=== PATIENT | male | born 1930 | race Caucasian/White ===

== ENCOUNTER 2016-08-30 23:03 | Inpatient (IN) | payer MEDICARE ==
[~2016-08-30] VITALS: Ht 180.3 cm; Wt 58.2 kg
--- NOTE | 2016-08-30 23:15 | PHYS DOC ---
Adult General Chief Complaint Chief Complaint: syncope HPI HPI Patient is a 86 year old male who presents with. He states he felt a little weak today and then I placed in a kitchen a syncopal episode. This was witnessed by his girlfriend who found him on the floor. He is currently awake alert and oriented 3 and has no complaints. He states he's been eating more red meat lately his been having more stomach upset is been using Pepto-Bismol. He states his stools get black whenever uses Pepto. He denies any chest pain nausea vomiting. He states he does take an aspirin a day and takes Ativan as needed for anxiety. Review of Systems Review of Systems Constitutional: Denies fever or chills [] Eyes: Denies change in visual acuity, redness, or eye pain [] HENT: Denies nasal congestion or sore throat [] Respiratory: Denies cough or shortness of breath [] Cardiovascular: No additional information not addressed in HPI [] GI: Denies abdominal pain, nausea, vomiting, bloody stools or diarrhea [] : Denies dysuria or hematuria [] Musculoskeletal: Denies back pain or joint pain [] Integument: Denies rash or skin lesions [] Neurologic: Denies headache, focal weakness or sensory changes [] Endocrine: Denies polyuria or polydipsia [] Current Medications Current Medications Allergies Allergies Allergies Coded Allergies Type Severity Reaction Last Updated Verified No Known Drug Allergies 08/30/16 No Physical Exam Physical Exam Constitutional: Well developed, well nourished, no acute distress, non-toxic appearance. [] HENT: Normocephalic, atraumatic, bilateral external ears normal, oropharynx moist, no oral exudates, nose normal. [] Eyes: PERRLA, EOMI, conjunctiva normal, no discharge. [] Neck: Normal range of motion, no tenderness, supple, no stridor. [] Cardiovascular:Heart rate regular rhythm, no murmur [] Lungs & Thorax: Bilateral breath sounds clear to auscultation [] Abdomen: Bowel sounds normal, soft, no tenderness, no masses, no pulsatile masses. [] Skin: Warm, dry, no erythema, no rash. [] Back: No tenderness, no CVA tenderness. [] Extremities: No tenderness, no cyanosis, no clubbing, ROM intact, no edema. [] Neurologic: Alert and oriented X 3, normal motor function, normal sensory function, no focal deficits noted. [] Psychologic: Affect normal, judgement normal, mood normal. [] Current Patient Data Vital Signs Vital Signs Date Time Temp Pulse Resp B/P (MAP) Pulse Ox O2 Delivery O2 Flow Rate FiO2 08/30/16 23:30 88 20 106/52 (70) 99 Room Air 08/30/16 23:03 97.8 97.8 Lab Values Laboratory Tests Test 08/30/16 23:15 White Blood Count 9.3 x10^3/uL (4.0-11.0) Red Blood Count 2.37 x10^6/uL (4.30-5.70) L Hemoglobin 8.1 g/dL (13.0-17.5) L Hematocrit 23.5 % (39.0-53.0) L Mean Corpuscular Volume 99 fL (79-100) Mean Corpuscular Hemoglobin 34 pg (25-35) Mean Corpuscular Hemoglobin Concent 35 g/dL (31-37) Red Cell Distribution Width 13.4 % (11.5-14.5) Platelet Count 154 x10^3/uL (140-400) Neutrophils (%) (Auto) 67 % (31-73) Lymphocytes (%) (Auto) 22 % (24-48) L Monocytes (%) (Auto) 7 % (0-9) Eosinophils (%) (Auto) 3 % (0-3) Basophils (%) (Auto) 1 % (0-3) Neutrophils # (Auto) 6.3 x10^3uL (1.8-7.7) Lymphocytes # (Auto) 2.1 x10^3/uL (1.0-4.8) Monocytes # (Auto) 0.6 x10^3/uL (0.0-1.1) Eosinophils # (Auto) 0.2 x10^3/uL (0.0-0.7) Basophils # (Auto) 0.1 x10^3/uL (0.0-0.2) Prothrombin Time 17.0 SEC (11.7-14.0) H Prothrombin Time INR 1.5 (0.8-1.1) H Sodium Level 144 mmol/L (136-145) Potassium Level 4.5 mmol/L (3.5-5.1) Chloride Level 109 mmol/L (98-107) H Carbon Dioxide Level 26 mmol/L (21-32) Anion Gap 9 (6-14) Blood Urea Nitrogen 49 mg/dL (8-26) H Creatinine 1.0 mg/dL (0.7-1.3) Estimated GFR (Cockcroft-Gault) 71.2 Glucose Level 194 mg/dL (70-99) H Calcium Level 8.4 mg/dL (8.5-10.1) L Magnesium Level 1.8 mg/dL (1.8-2.4) Total Bilirubin 0.6 mg/dL (0.2-1.0) Direct Bilirubin 0.1 mg/dL (0.0-0.2) Aspartate Amino Transferase (AST) 29 U/L (15-37) Alanine Aminotransferase (ALT) 18 U/L (16-63) Alkaline Phosphatase 56 U/L (46-116) Creatine Kinase 110 U/L (39-308) Creatine Kinase MB (Mass) 1.1 ng/mL (0.0-3.6) Creatine Kinase MB Relative Index 1.0 % (0-4) Troponin I Quantitative 0.080 ng/mL (0.000-0.055) IF-Alv-P-Type Natriuretic Peptide 140 pg/mL (0-449) Total Protein 4.5 g/dL (6.4-8.2) L Albumin 2.4 g/dL (3.4-5.0) L Thyroid Stimulating Hormone (TSH) 4.149 uIU/mL (0.358-3.74) H Laboratory Tests 08/30/16 23:15 Laboratory Tests 08/30/16 23:15 EKG EKG EKG shows sinus rhythm with rate of [address] elevations or T-wave inversions, PVCs noted, normal axis, QTC 436 ms, as interpreted by me. Radiology/Procedures Radiology/Procedures One view chest x-ray did not show any focal consolidations, bony abnormality, pneumothorax, as interpreted by me. Impressions: Syncope Anemia Elevated troponin Course & Med Decision Making Course & Med Decision Making Pertinent Labs and Imaging studies reviewed. (See chart for details) She is being admitted for syncopal episode and likely an upper GI bleed. He has dark black stools on rectal exam and Hemoccult is pending at this time. His hemoglobin is 8. His blood pressure is on the softer side for usually runs. Is 107 systolic and he states he usually runs 120s to 30s. He started her protonic drip per pharmacy and one unit of blood is being given per hospital's recommendations. I have consult with GI. I will place a consult computer for cardiology since she has an elevated troponin of 0.08. He does not have any chest pain at this time. Patient's in stable condition be admitted to the floor. He did speak with Dr. Temple with GI to inform her of the patient's vitals, current situation, labs and admission to the [facility] to the hospitalist. Critical care time: 60 minutes of critical care time was used on this patient a sling procedures. Dragon Disclaimer Dragon Disclaimer This electronic medical record was generated, in whole or in part, using a voice recognition dictation system. Departure Departure Impression: Primary Impression: Syncope Disposition: ADMITTED INPATIENT Admitting Physician: Other Condition: STABLE ROSCOE FULLER MD Aug 30, 2016 23:15
[2016-08-30 23:24] LABS: BASO # 0.1 x10^3/uL (0.0-0.2); BASO % 1 % (0-3); EOS % 3 % (0-3); HEMATOCRIT 23.5 % (39.0-53.0); HEMOGLOBIN 8.1 g/dL (13.0-17.5); LYMPH # 2.1 x10^3/uL (1.0-4.8); LYMPH % 22 % (24-48); MEAN CORPUSCULAR HEMOGLOBIN 34 pg (25-35); MEAN CORPUSCULAR HGB CONC 35 g/dL (31-37); MEAN CORPUSCULAR VOLUME 99 fL (79-100); MONO % 7 % (0-9); NEUT % 67 % (31-73); PLATELET COUNT 154 x10^3/uL (140-400); RED BLOOD COUNT 2.37 x10^6/uL (4.30-5.70); RED CELL DISTRIBUTION WIDTH 13.4 % (11.5-14.5); WHITE BLOOD COUNT 9.3 x10^3/uL (4.0-11.0)
[2016-08-30 23:33] LABS: INR 1.5 (0.8-1.1)
[2016-08-30 23:36] LABS: CALCIUM 8.4 mg/dL (8.5-10.1); GFR 71.2; POTASSIUM 4.5 mmol/L (3.5-5.1)
[2016-08-30 23:43] LABS: ALBUMIN 2.4 g/dL (3.4-5.0); DIRECT BILIRUBIN 0.1 mg/dL (0.0-0.2); MAGNESIUM 1.8 mg/dL (1.8-2.4); TOTAL BILIRUBIN 0.6 mg/dL (0.2-1.0); TOTAL PROTEIN 4.5 g/dL (6.4-8.2)
[2016-08-31] VITALS (21 sets, daily range): BP systolic 97–145; BP diastolic 48–66
[2016-08-31] MEDS ORDERED: IV NORMAL SALINE 1000ML BAG 1,000 ML IV ONE (00:30)
[2016-08-31 00:33] LABS: CKMB MASS 1.1 ng/mL (0.0-3.6)
[2016-08-31 01:10] LABS: NEG OBC FOB NEG; POS OBC FOB POS
[2016-08-31] MEDS ORDERED: ONDANSETRON PF 4 MG/2 ML VIAL. IV PRN (01:30)
[2016-08-31] MEDS: PANTOPRAZOLE SODIUM IV 80 MG in IV NORMAL SALINE 100ML 100 ML IV SCH ×3 (01:43→21:14)
--- NOTE | 2016-08-31 01:57 | ACF ---
Admission Forms Criteria GASTROINTESTINAL BLEEDING Clinical Indications for Inpatient Care (Place 'X' for any and all applicable criteria): Ongoing inpatient care may be indicated for gastrointestinal bleeding with ANY ONE of the following (4)(20)(21)(22)(23)(24): [ ]I. Active bleeding (eg, fresh voluminous blood in emesis or nasogastric aspirate, or per rectum) [ ]II. Hemodynamic instability [ ]III. Anticoagulation therapy or coagulopathy ((eg, advanced liver disease, irreversible anticoagulation) [ ]IV. Ischemic colitis (22) [ ]V. Endoscopy showing arterial bleeding, adherent clot, nonbleeding visible vessel, varices, flat red spots, ulcer size greater than 2 cm, or portal hypertensive gastropathy [ ]. High-risk low platelet count [X]VII. Anemia requiring inpatient care as indicated by ANY ONE of the following a)[ ] Cognitive impairment b)[X] Syncope c)[ ] Heart failure d)[ ] Chest pain e)[ ] Dyspnea f)[ ] Other findings suggesting inadequate perfusion (eg, peripheral or myocardial ischemia, end organ dysfunction) [ ]VIII. High-risk low platelet count [ ]IX. Suspected variceal cause of bleeding as indicated by ANY ONE of the following(27)(28): a)[ ] Known varices b)[ ] Hepatomegaly or splenomegaly c)[ ] Ascites d)[ ] Jaundice or scleral icterus e)[ ] History of liver disease (eg, cirrhosis) f)[ ] Physical findings of portal hypertension (eg, caput medusa) g)[ ] Comorbid disorder indicating risk for portal vein thrombosis (eg , abdominal surgery, sepsis, shock, exchange transfusion, prior umbilical vein catheterization) Extended stay may be needed until ALL of the following are present(20)(38)(47): [ ]a) Hemodynamic stability [ ]b) No evidence of active bleeding (eg, stable Hematocrit) [ ]c) Platelet count, prothrombin time, and partial thromboplastin time acceptable for next level of care [ ]d) Surgical or other acute intervention not needed [ ]e) Oral hydration and diet tolerated The original [facility] content created by Stella Dennison has been revised. The portions of the content which have been revised are identified through the use of italic text or in bold, and Stella Dennison has neither reviewed nor approved the modified material. All other unmodified content is copyright [facility]. Please see references footnoted in the original [facility] edition 2016 Admission Criteria Met?: Yes DERIK HASSAN Aug 31, 2016 01:57
[2016-08-31] MEDS ORDERED: MELA3TAB2 PO (06:26)
[2016-08-31] MEDS ORDERED: ASPI-482 PO (06:26)
[2016-08-31] MEDS ORDERED: CLON0.5T PO (06:26)
--- NOTE | 2016-08-31 08:11 | RAD ---
Portable chest, 08/30/2016: History: Syncope The heart size is normal. There is calcific plaquing of the aorta. The pulmonary vascularity is normal. No pulmonary infiltrates are seen. There is no evidence of pleural fluid. IMPRESSION: No acute cardiopulmonary abnormality is detected.
--- NOTE | 2016-08-31 08:20 | EKG ---
[facility] [address] [place] [address] Test Date: 2016-08-30 Test Time: 23:09:52 Pat Name: ALBERT OCHOA Department: Room: 258 1 Gender: M Enamel Dipper: : 1930 Requested By: ROSCOE FULLER Order Number: [id number] Reading MD: Tushar Doran Measurements Intervals [place] Rate: 93 P: 51 NH: 132 QRS: 31 QRSD: 76 T: 29 QT: 370 QTc: 463 Interpretive Statements SINUS RHYTHM VENTRICULAR PREMATURE COMPLEX(ES) LOW LIMB LEAD VOLTAGE QRS(T) CONTOUR ABNORMALITY CANNOT RULE OUT ANTEROLATERAL MYOCARDIAL DAMAGE RI6.01 Unconfirmed report No previous ECG available for comparison Electronically Signed On 08-31-2016 15:54:59 CDT by Tushar Doran
[2016-08-31 09:58] LABS: HEMATOCRIT 20.4 % (39.0-53.0)
--- NOTE | 2016-08-31 10:46 | PDOC2 ---
CONSULT - DR. ARMANDO CHIEF COMPLAINT Chief Complaint anemia, heme positive stool Problems: HPI HPI Patient is a 86 year old male who presents with. He states he felt a little weak today and then I placed in a kitchen a syncopal episode. This was witnessed by his girlfriend who found him on the floor. He is currently awake alert and oriented 3 and has no complaints. He states he's been eating more red meat lately his been having more stomach upset is been using Pepto-Bismol. He states his stools get black whenever uses Pepto. He denies any chest pain nausea vomiting. He states he does take an aspirin a day and takes Ativan as needed for anxiety. He was found to have a hgb of 8.1 on admit and is not 7. He takes ASA 81 mg. His last colonoscopy was at age 77 by [facility]. No prior EGD. Trop initially elevated now normal. He started takiing Doxicycline from last Thursday to for a tic bite PMH PMH PMH Tic bite with recent doxicycline INsomnia for which he takes melatonin FMH no CRC Meds Melatonin Asa Doxicycline ROS ROS GEN: Denies fever or weight loss HEENT: No blurred vision or sore throat CV: Denies chest pain RESP: No shortness of breath or cough GI: As per HPI : No dysuria or hematuria M/S: No myalgias NEURO: No headache PSYCH: No depression Ricky Vital Signs Date Time Temp Pulse Resp B/P (MAP) Pulse Ox O2 Delivery O2 Flow Rate FiO2 08/31/16 10:10 98.9 98.9 08/31/16 08:00 Room Air 08/31/16 07:00 79 16 101/48 (65) 99 Physical Exam GEN: NAD HEENT: OP clear CV: S1S2 with murmur RESP: CTAB without wheezing, rhonchi, or crackles ABD: NABS, SNT/ND EXT: No edema NEURO: AAO x 3 LABS Labs Laboratory Tests Test 08/30/16 23:15 08/31/16 00:25 08/31/16 07:30 08/31/16 09:46 White Blood Count 9.3 x10^3/uL (4.0-11.0) Red Blood Count 2.37 x10^6/uL (4.30-5.70) Hemoglobin 8.1 g/dL (13.0-17.5) 7.0 g/dL (13.0-17.5) Hematocrit 23.5 % (39.0-53.0) 20.4 % (39.0-53.0) Mean Corpuscular Volume 99 fL (79-100) Mean Corpuscular Hemoglobin 34 pg (25-35) Mean Corpuscular Hemoglobin Concent 35 g/dL (31-37) 34 g/dL (31-37) Red Cell Distribution Width 13.4 % (11.5-14.5) Platelet Count 154 x10^3/uL (140-400) Neutrophils (%) (Auto) 67 % (31-73) Lymphocytes (%) (Auto) 22 % (24-48) Monocytes (%) (Auto) 7 % (0-9) Eosinophils (%) (Auto) 3 % (0-3) Basophils (%) (Auto) 1 % (0-3) Neutrophils # (Auto) 6.3 x10^3uL (1.8-7.7) Lymphocytes # (Auto) 2.1 x10^3/uL (1.0-4.8) Monocytes # (Auto) 0.6 x10^3/uL (0.0-1.1) Eosinophils # (Auto) 0.2 x10^3/uL (0.0-0.7) Basophils # (Auto) 0.1 x10^3/uL (0.0-0.2) Prothrombin Time 17.0 SEC (11.7-14.0) Prothromb Time International Ratio 1.5 (0.8-1.1) Sodium Level 144 mmol/L (136-145) Potassium Level 4.5 mmol/L (3.5-5.1) Chloride Level 109 mmol/L (98-107) Carbon Dioxide Level 26 mmol/L (21-32) Anion Gap 9 (6-14) Blood Urea Nitrogen 49 mg/dL (8-26) Creatinine 1.0 mg/dL (0.7-1.3) Estimated GFR (Cockcroft-Gault) 71.2 Glucose Level 194 mg/dL (70-99) Calcium Level 8.4 mg/dL (8.5-10.1) Magnesium Level 1.8 mg/dL (1.8-2.4) Total Bilirubin 0.6 mg/dL (0.2-1.0) Direct Bilirubin 0.1 mg/dL (0.0-0.2) Aspartate Amino Transf (AST/SGOT) 29 U/L (15-37) Alanine Aminotransferase (ALT/SGPT) 18 U/L (16-63) Alkaline Phosphatase 56 U/L (46-116) Creatine Kinase 110 U/L (39-308) Creatine Kinase MB (Mass) 1.1 ng/mL (0.0-3.6) Creatine Kinase MB Relative Index 1.0 % (0-4) Troponin I Quantitative 0.080 ng/mL (0.000-0.055) 0.036 ng/mL (0.000-0.055) CV-Hlc-W-Type Natriuretic Peptide 140 pg/mL (0-449) Total Protein 4.5 g/dL (6.4-8.2) Albumin 2.4 g/dL (3.4-5.0) Thyroid Stimulating Hormone (TSH) 4.149 uIU/mL (0.358-3.74) Stool Occult Blood Positive (NEG) IMAGING Imaging CXR ASSESSMENT & PLAN Assessment & Plan Anemia blood loss: Receiving prbcs. Cont PPI. Favor EGD if okay with cardiology RUFINO ARMANDO MD Aug 31, 2016 10:46
[2016-08-31] MEDS ORDERED: 0.9 % SODIUM CHLORIDE 10 ML DISP.SYRIN. IV PRN (11:00)
--- NOTE | 2016-08-31 11:02 | PDOC1 ---
History and Physical Date of Admission Date of Admission DATE: 08/31/16 TIME: 10:42 Identification/Chief Complaint Chief Complaint Syncope Melena Problems: Source Source: Patient History of Present Illness History of Present Illness Mr Cervantes is an 86 y/o man who presented to the ER after a syncopal episode at home. He relates that he was about to take his bedtime medications when he suddenly collapsed in his kitchen. His girlfriend heard a thump and found him, callled [phone]. He came to when he arrived in the ER. has fairly good recollection of events from then on. Denies any SOB or CP or palpitation, denies any history of heart disease. On further questioning, he admits to melena for the past week, as well as stomach upset, for which he took multiple doses of Tums daily for the past week. He attributed the symptoms to an antibiotic he was prescribed for a tick bite and resultant cellulitis last Thursday. Past Medical History Cardiovascular: No pertinent hx Pulmonary: No pertinent hx GI: No pertinent hx Heme/Onc: Other (easy bruising) Musculoskeletal: Osteoarthritis Family History Family History longevity on both sides Family History: Chronic Bronchitis Social History Smoke: No ALCOHOL: occassional Drugs: None Current Problem List Problem List Problems Medical Problems: (1) Syncope Status: Acute Problems: Current Medications Current Medications Current Medications Sodium Chloride 1,000 ml @ 1,000 mls/hr 1X ONCE IV Last administered on 00:19; Start 08/31/16 at 00:30; Stop 08/31/16 at 01:29; Status DC Pantoprazole Sodium 80 mg/ Sodium Chloride 100 ml @ 10 mls/hr Q10H IV Last administered on 08/31/16 10:20; Start 08/31/16 at 00:45 Ondansetron HCl (Zofran) 4 mg PRN Q8HRS PRN IV NAUSEA/VOMITING; Start 08/31/16 at 01:30; Stop 09/01/16 at 01:29 Active Scripts Active Reported Aspir 81 (Aspirin) 81 Mg Tablet.dr 1 Tab PO DAILY Melatonin 3 Mg Tablet 1 Tab PO QHS Klonopin (Clonazepam) 0.5 Mg Tablet 1 Tab PO QHS Allergies Allergies: Coded Allergies: No Known Drug Allergies (Unverified , 08/30/16) ROS Review of System positive as per HPI. recent infected tick bite - resolved. no c/o in rest of organ system review Physical Exam General: Alert, Oriented X3, Cooperative, No acute distress HEENT: Atraumatic, EOMI, Mucous membr. moist/pink Heart: RRR Abdomen: Normal bowel sounds, Soft, No tenderness, No hepatosplenomegaly Extremities: No clubbing, No cyanosis, No edema Skin: No rashes Neuro: Normal speech Psych/Mental Status: Mental status NL Vitals Vitals Vital Signs Date Time Temp Pulse Resp B/P (MAP) Pulse Ox O2 Delivery O2 Flow Rate FiO2 08/31/16 10:10 98.9 98.9 08/31/16 08:00 Room Air 08/31/16 07:00 79 16 101/48 (65) 99 Labs Labs Laboratory Tests Test 08/30/16 23:15 08/31/16 00:25 08/31/16 07:30 08/31/16 09:46 White Blood Count 9.3 x10^3/uL (4.0-11.0) Red Blood Count 2.37 x10^6/uL (4.30-5.70) Hemoglobin 8.1 g/dL (13.0-17.5) 7.0 g/dL (13.0-17.5) Hematocrit 23.5 % (39.0-53.0) 20.4 % (39.0-53.0) Mean Corpuscular Volume 99 fL (79-100) Mean Corpuscular Hemoglobin 34 pg (25-35) Mean Corpuscular Hemoglobin Concent 35 g/dL (31-37) 34 g/dL (31-37) Red Cell Distribution Width 13.4 % (11.5-14.5) Platelet Count 154 x10^3/uL (140-400) Neutrophils (%) (Auto) 67 % (31-73) Lymphocytes (%) (Auto) 22 % (24-48) Monocytes (%) (Auto) 7 % (0-9) Eosinophils (%) (Auto) 3 % (0-3) Basophils (%) (Auto) 1 % (0-3) Neutrophils # (Auto) 6.3 x10^3uL (1.8-7.7) Lymphocytes # (Auto) 2.1 x10^3/uL (1.0-4.8) Monocytes # (Auto) 0.6 x10^3/uL (0.0-1.1) Eosinophils # (Auto) 0.2 x10^3/uL (0.0-0.7) Basophils # (Auto) 0.1 x10^3/uL (0.0-0.2) Prothrombin Time 17.0 SEC (11.7-14.0) Prothromb Time International Ratio 1.5 (0.8-1.1) Sodium Level 144 mmol/L (136-145) Potassium Level 4.5 mmol/L (3.5-5.1) Chloride Level 109 mmol/L (98-107) Carbon Dioxide Level 26 mmol/L (21-32) Anion Gap 9 (6-14) Blood Urea Nitrogen 49 mg/dL (8-26) Creatinine 1.0 mg/dL (0.7-1.3) Estimated GFR (Cockcroft-Gault) 71.2 Glucose Level 194 mg/dL (70-99) Calcium Level 8.4 mg/dL (8.5-10.1) Magnesium Level 1.8 mg/dL (1.8-2.4) Total Bilirubin 0.6 mg/dL (0.2-1.0) Direct Bilirubin 0.1 mg/dL (0.0-0.2) Aspartate Amino Transf (AST/SGOT) 29 U/L (15-37) Alanine Aminotransferase (ALT/SGPT) 18 U/L (16-63) Alkaline Phosphatase 56 U/L (46-116) Creatine Kinase 110 U/L (39-308) Creatine Kinase MB (Mass) 1.1 ng/mL (0.0-3.6) Creatine Kinase MB Relative Index 1.0 % (0-4) Troponin I Quantitative 0.080 ng/mL (0.000-0.055) 0.036 ng/mL (0.000-0.055) YI-Uqy-G-Type Natriuretic Peptide 140 pg/mL (0-449) Total Protein 4.5 g/dL (6.4-8.2) Albumin 2.4 g/dL (3.4-5.0) Thyroid Stimulating Hormone (TSH) 4.149 uIU/mL (0.358-3.74) Stool Occult Blood Positive (NEG) Laboratory Tests Test 08/30/16 23:15 7/17 00:25 08/31/16 07:30 08/31/16 09:46 White Blood Count 9.3 x10^3/uL (4.0-11.0) Red Blood Count 2.37 x10^6/uL (4.30-5.70) Hemoglobin 8.1 g/dL (13.0-17.5) 7.0 g/dL (13.0-17.5) Hematocrit 23.5 % (39.0-53.0) 20.4 % (39.0-53.0) Mean Corpuscular Volume 99 fL (79-100) Mean Corpuscular Hemoglobin 34 pg (25-35) Mean Corpuscular Hemoglobin Concent 35 g/dL (31-37) 34 g/dL (31-37) Red Cell Distribution Width 13.4 % (11.5-14.5) Platelet Count 154 x10^3/uL (140-400) Neutrophils (%) (Auto) 67 % (31-73) Lymphocytes (%) (Auto) 22 % (24-48) Monocytes (%) (Auto) 7 % (0-9) Eosinophils (%) (Auto) 3 % (0-3) Basophils (%) (Auto) 1 % (0-3) Neutrophils # (Auto) 6.3 x10^3uL (1.8-7.7) Lymphocytes # (Auto) 2.1 x10^3/uL (1.0-4.8) Monocytes # (Auto) 0.6 x10^3/uL (0.0-1.1) Eosinophils # (Auto) 0.2 x10^3/uL (0.0-0.7) Basophils # (Auto) 0.1 x10^3/uL (0.0-0.2) Prothrombin Time 17.0 SEC (11.7-14.0) Prothromb Time International Ratio 1.5 (0.8-1.1) Sodium Level 144 mmol/L (136-145) Potassium Level 4.5 mmol/L (3.5-5.1) Chloride Level 109 mmol/L (98-107) Carbon Dioxide Level 26 mmol/L (21-32) Anion Gap 9 (6-14) Blood Urea Nitrogen 49 mg/dL (8-26) Creatinine 1.0 mg/dL (0.7-1.3) Estimated GFR (Cockcroft-Gault) 71.2 Glucose Level 194 mg/dL (70-99) Calcium Level 8.4 mg/dL (8.5-10.1) Magnesium Level 1.8 mg/dL (1.8-2.4) Total Bilirubin 0.6 mg/dL (0.2-1.0) Direct Bilirubin 0.1 mg/dL (0.0-0.2) Aspartate Amino Transf (AST/SGOT) 29 U/L (15-37) Alanine Aminotransferase (ALT/SGPT) 18 U/L (16-63) Alkaline Phosphatase 56 U/L (46-116) Creatine Kinase 110 U/L (39-308) Creatine Kinase MB (Mass) 1.1 ng/mL (0.0-3.6) Creatine Kinase MB Relative Index 1.0 % (0-4) Troponin I Quantitative 0.080 ng/mL (0.000-0.055) 0.036 ng/mL (0.000-0.055) DQ-Rjf-E-Type Natriuretic Peptide 140 pg/mL (0-449) Total Protein 4.5 g/dL (6.4-8.2) Albumin 2.4 g/dL (3.4-5.0) Thyroid Stimulating Hormone (TSH) 4.149 uIU/mL (0.358-3.74) Stool Occult Blood Positive (NEG) VTE Prophylaxis Ordered VTE Prophylaxis Devices: Yes VTE Pharmacological Prophylaxi: Contraindicated Assessment/Plan Assessment/Plan Mr Cervantes is an 86 y/o man w/o any significant PMH, who presented to the ER after a syncopal event and ongoing melena and symptoms of gastritis. He has been transfused with 1 PRBC last night and has been rehydrated. H/H continues to drop. transfuse PRBC now, monitor H/H closely. GI consult requested for EGD. Will hold his baby aspirin and melatonin for now; switch to IV PRN ativan for longstanding benzo use (since before of his 1 yr ago). States his PCP is weaning him off the med slowly. The suspicion is that his syncope may be related to fairly rapidly developing anemia of acute bleed. However, heart disease cannot be ruled out, norma with mild troponin leak - prob demand ischemia. cardiology consult requested. Condition: ALPHONSO Self MD Aug 31, 2016 11:02
[2016-08-31 11:04] LABS: BILIRUBIN,URINE NEGATIVE (NEG); GLUCOSE,URINE NEGATIVE (NEG); NITRITE,URINE NEGATIVE (NEG); PROTEIN,URINE NEGATIVE (NEG-TRACE); UROBILINOGEN,URINE 0.2 mg/dL (0.2 mg/dL)
[2016-08-31 11:10] LABS: SQUAMOUS EPITHELIAL CELL,UR FEW /LPF
[2016-08-31 11:11] LABS: BACTERIA,URINE FEW /HPF (0-FEW); RBC,URINE OCC /HPF (0-2); WBC,URINE OCC /HPF (0-4)
[2016-08-31] MEDS ORDERED: IV RINGERS,LACTATED 1000ML 1,000 ML IV SCH (13:12)
[2016-08-31] MEDS ORDERED: PROPOFOL 20 ML IV ONE (13:38)
[2016-08-31] MEDS ORDERED: EPINEPHrine 1 MG/ML VIAL SQ ONE ×2 (13:52)
[2016-08-31] MEDS ORDERED: EPINEPHrine SYRINGE 1 MG/10 ML SYRINGE ONE (14:11)
--- NOTE | 2016-08-31 14:43 | PDOC2 ---
CONSULT Date of Consult Date of Consult DATE: 08/31/16 TIME: 14:35 Reason for Consult Reason for Consult: Syncope Referring Physician Referring Physician: Dr. Peña Identification/Chief Complaint Chief Complaint Syncope Problems: Source Source: Patient History of Present Illness Reason for Visit: The patient is a pleasant 86-year-old male with reported episode of syncope while standing yesterday. The patient has had no previous episodes of syncope. He denies any associated chest pain or shortness of breath. He does report an upset stomach last several weeks for which she's been treated with Tums. Initial labs showed a minimally elevated troponin 0.08, increased TSH of 4.149. Chest x-ray showed no acute changes. EKG showed a sinus rhythm with no acute ischemic changes but increased PVCs. Initial hemoglobin and hematocrit was 8.1 and 23.5. Recheck this morning showed 7.0 and 20.4. Patient is resting comfortably in bed. He reportedly has dark bloody stool on rectal examination. Past Medical History Cardiovascular: No pertinent hx Pulmonary: No pertinent hx GI: No pertinent hx Heme/Onc: Other (easy bruising) Musculoskeletal: Osteoarthritis Past Surgical History Past Surgical History: No pertinent history Family History Family History: Chronic Bronchitis, Hypertension Social History Quit ALCOHOL: occassional Drugs: None Current Problem List Problem List Problems Medical Problems: (1) Syncope Status: Acute Current Medications Current Medications Current Medications Sodium Chloride 1,000 ml @ 1,000 mls/hr 1X ONCE IV Last administered on 00:19; Start 08/31/16 at 00:30; Stop 08/31/16 at 01:29; Status DC Pantoprazole Sodium 80 mg/ Sodium Chloride 100 ml @ 10 mls/hr Q10H IV Last administered on 08/31/16 10:20; Start 08/31/16 at 00:45 Ondansetron HCl (Zofran) 4 mg PRN Q8HRS PRN IV NAUSEA/VOMITING; Start 08/31/16 at 01:30; Stop 09/01/16 at 01:29 Sodium Chloride (Normal Saline Flush) 3 ml QSHIFT PRN IV AFTER MEDS AND BLOOD DRAWS; Start 08/31/16 at 11:00 Ringer's Solution 1,000 ml @ 50 mls/hr Q20H IV ; Start 08/31/16 at 13:12; Stop 09/01/16 at 01:11 Propofol 20 ml @ As Directed STK-MED ONCE IV ; Start 08/31/16 at 13:38; Stop 08/31 at 13:39; Status DC Epinephrine HCl (Adrenalin) 1 mg STK-MED ONCE SQ Last administered on 08/31/16 13:52; Start 08/31/16 at 13:52; Stop 08/31/16 at 14:04; Status DC Epinephrine HCl (Adrenalin) 1 mg STK-MED ONCE SQ Last administered on 08/31/16 13:52; Start 08/31/16 at 13:52; Stop 08/31/16 at 14:04; Status DC Epinephrine HCl (EPINEPHrine SYRINGE) 1 mg STK-MED ONCE .ROUTE ; Start 08/31/16 at 14:11; Stop 08/31/16 at 14:12; Status DC Active Scripts Active Reported Aspir 81 (Aspirin) 81 Mg Tablet.dr 1 Tab PO DAILY Melatonin 3 Mg Tablet 1 Tab PO QHS Klonopin (Clonazepam) 0.5 Mg Tablet 1 Tab PO QHS Allergies Allergies: Coded Allergies: No Known Drug Allergies (Unverified , 08/31/16) ROS General: YES: Fatigue Cardiovascular: yes Other (syncope) Gastrointestinal: Yes Other (epigastric discomfort) Physical Exam General: No acute distress HEENT: Atraumatic Lungs: Clear to auscultation Heart: Regular rate Abdomen: Normal bowel sounds Vitals VITALS Vital Signs Date Time Temp Pulse Resp B/P (MAP) Pulse Ox O2 Delivery O2 Flow Rate FiO2 08/31/16 14:18 90 20 121/58 100 Room Air 08/31/16 14:02 99.7 99.7 Labs Labs Laboratory Tests Test 08/30/16 23:15 08/31/16 00:25 08/31/16 07:30 08/31/16 09:46 White Blood Count 9.3 x10^3/uL (4.0-11.0) Red Blood Count 2.37 x10^6/uL (4.30-5.70) Hemoglobin 8.1 g/dL (13.0-17.5) 7.0 g/dL (13.0-17.5) Hematocrit 23.5 % (39.0-53.0) 20.4 % (39.0-53.0) Mean Corpuscular Volume 99 fL (79-100) Mean Corpuscular Hemoglobin 34 pg (25-35) Mean Corpuscular Hemoglobin Concent 35 g/dL (31-37) 34 g/dL (31-37) Red Cell Distribution Width 13.4 % (11.5-14.5) Platelet Count 154 x10^3/uL (140-400) Neutrophils (%) (Auto) 67 % (31-73) Lymphocytes (%) (Auto) 22 % (24-48) Monocytes (%) (Auto) 7 % (0-9) Eosinophils (%) (Auto) 3 % (0-3) Basophils (%) (Auto) 1 % (0-3) Neutrophils # (Auto) 6.3 x10^3uL (1.8-7.7) Lymphocytes # (Auto) 2.1 x10^3/uL (1.0-4.8) Monocytes # (Auto) 0.6 x10^3/uL (0.0-1.1) Eosinophils # (Auto) 0.2 x10^3/uL (0.0-0.7) Basophils # (Auto) 0.1 x10^3/uL (0.0-0.2) Prothrombin Time 17.0 SEC (11.7-14.0) Prothromb Time International Ratio 1.5 (0.8-1.1) Sodium Level 144 mmol/L (136-145) Potassium Level 4.5 mmol/L (3.5-5.1) Chloride Level 109 mmol/L (98-107) Carbon Dioxide Level 26 mmol/L (21-32) Anion Gap 9 (6-14) Blood Urea Nitrogen 49 mg/dL (8-26) Creatinine 1.0 mg/dL (0.7-1.3) Estimated GFR (Cockcroft-Gault) 71.2 Glucose Level 194 mg/dL (70-99) Calcium Level 8.4 mg/dL (8.5-10.1) Magnesium Level 1.8 mg/dL (1.8-2.4) Total Bilirubin 0.6 mg/dL (0.2-1.0) Direct Bilirubin 0.1 mg/dL (0.0-0.2) Aspartate Amino Transf (AST/SGOT) 29 U/L (15-37) Alanine Aminotransferase (ALT/SGPT) 18 U/L (16-63) Alkaline Phosphatase 56 U/L (46-116) Creatine Kinase 110 U/L (39-308) Creatine Kinase MB (Mass) 1.1 ng/mL (0.0-3.6) Creatine Kinase MB Relative Index 1.0 % (0-4) Troponin I Quantitative 0.080 ng/mL (0.000-0.055) 0.036 ng/mL (0.000-0.055) [id number]-Type Natriuretic Peptide 140 pg/mL (0-449) Total Protein 4.5 g/dL (6.4-8.2) Albumin 2.4 g/dL (3.4-5.0) Thyroid Stimulating Hormone (TSH) 4.149 uIU/mL (0.358-3.74) Stool Occult Blood Positive (NEG) Test 08/31/16 10:00 Urine Collection Type Unknown Urine Color Yellow Urine Clarity Clear Urine pH 8.0 Urine Specific [place] 1.020 Urine Protein Negative mg/dL (NEG-TRACE) Urine Glucose (UA) Negative mg/dL (NEG) Urine Ketones (Stick) Trace mg/dL (NEG) Urine Blood Negative (NEG) Urine Nitrite Negative (NEG) Urine Bilirubin Negative (NEG) Urine Urobilinogen Dipstick 0.2 mg/dL (0.2 mg/dL) Urine Leukocyte Esterase Negative (NEG) Urine RBC Occ /HPF (0-2) Urine WBC Occ /HPF (0-4) Urine Squamous Epithelial Cells Few /LPF Urine Bacteria Few /HPF (0-FEW) Urine Mucus Slight /LPF Laboratory Tests Test 08/30/16 23:15 08/31/16 00:25 08/31/16 07:30 08/31/16 09:46 White Blood Count 9.3 x10^3/uL (4.0-11.0) Red Blood Count 2.37 x10^6/uL (4.30-5.70) Hemoglobin 8.1 g/dL (13.0-17.5) 7.0 g/dL (13.0-17.5) Hematocrit 23.5 % (39.0-53.0) 20.4 % (39.0-53.0) Mean Corpuscular Volume 99 fL (79-100) Mean Corpuscular Hemoglobin 34 pg (25-35) Mean Corpuscular Hemoglobin Concent 35 g/dL (31-37) 34 g/dL (31-37) Red Cell Distribution Width 13.4 % (11.5-14.5) Platelet Count 154 x10^3/uL (140-400) Neutrophils (%) (Auto) 67 % (31-73) Lymphocytes (%) (Auto) 22 % (24-48) Monocytes (%) (Auto) 7 % (0-9) Eosinophils (%) (Auto) 3 % (0-3) Basophils (%) (Auto) 1 % (0-3) Neutrophils # (Auto) 6.3 x10^3uL (1.8-7.7) Lymphocytes # (Auto) 2.1 x10^3/uL (1.0-4.8) Monocytes # (Auto) 0.6 x10^3/uL (0.0-1.1) Eosinophils # (Auto) 0.2 x10^3/uL (0.0-0.7) Basophils # (Auto) 0.1 x10^3/uL (0.0-0.2) Prothrombin Time 17.0 SEC (11.7-14.0) Prothromb Time International Ratio 1.5 (0.8-1.1) Sodium Level 144 mmol/L (136-145) Potassium Level 4.5 mmol/L (3.5-5.1) Chloride Level 109 mmol/L (98-107) Carbon Dioxide Level 26 mmol/L (21-32) Anion Gap 9 (6-14) Blood Urea Nitrogen 49 mg/dL (8-26) Creatinine 1.0 mg/dL (0.7-1.3) Estimated GFR (Cockcroft-Gault) 71.2 Glucose Level 194 mg/dL (70-99) Calcium Level 8.4 mg/dL (8.5-10.1) Magnesium Level 1.8 mg/dL (1.8-2.4) Total Bilirubin 0.6 mg/dL (0.2-1.0) Direct Bilirubin 0.1 mg/dL (0.0-0.2) Aspartate Amino Transf (AST/SGOT) 29 U/L (15-37) Alanine Aminotransferase (ALT/SGPT) 18 U/L (16-63) Alkaline Phosphatase 56 U/L (46-116) Creatine Kinase 110 U/L (39-308) Creatine Kinase MB (Mass) 1.1 ng/mL (0.0-3.6) Creatine Kinase MB Relative Index 1.0 % (0-4) Troponin I Quantitative 0.080 ng/mL (0.000-0.055) 0.036 ng/mL (0.000-0.055) FX-Ccw-V-Type Natriuretic Peptide 140 pg/mL (0-449) Total Protein 4.5 g/dL (6.4-8.2) Albumin 2.4 g/dL (3.4-5.0) Thyroid Stimulating Hormone (TSH) 4.149 uIU/mL (0.358-3.74) Stool Occult Blood Positive (NEG) Test 08/31/16 10:00 Urine Collection Type Unknown Urine Color Yellow Urine Clarity Clear Urine pH 8.0 Urine Specific [place] 1.020 Urine Protein Negative mg/dL (NEG-TRACE) Urine Glucose (UA) Negative mg/dL (NEG) Urine Ketones (Stick) Trace mg/dL (NEG) Urine Blood Negative (NEG) Urine Nitrite Negative (NEG) Urine Bilirubin Negative (NEG) Urine Urobilinogen Dipstick 0.2 mg/dL (0.2 mg/dL) Urine Leukocyte Esterase Negative (NEG) Urine RBC Occ /HPF (0-2) Urine WBC Occ /HPF (0-4) Urine Squamous Epithelial Cells Few /LPF Urine Bacteria Few /HPF (0-FEW) Urine Mucus Slight /LPF Images Images Chest x-ray shows no acute changes. Assessment/Plan Assessment/Plan 1. Syncope. Patient has had significant decrease in hemoglobin and hematocrit this point to 7.0 and 20.4. Believe this is the most likely etiology of the syncope. He does have increased numbers of PVCs on his monitor and will need to exclude underlying arrhythmias. At this time we will complete rule out myocardial infarction. Check an echocardiogram. Agree with EGD as per the GI service. 2. Minimally elevated troponin. Initial troponin was 0.08 with a repeat of 0.036. EKG EKG shows no ischemic changes. Will continue present medications. We' ll check an echocardiogram and consider future ischemic testing. 3. TSH level of 4.149. as per the primary service. Thank you for allowing us to participate in the care of your pleasant patient. SUN HELLER MD Aug 31, 2016 14:43
[2016-08-31 18:05] LABS: HEMOGLOBIN 9.2 g/dL (13.0-17.5); RED BLOOD COUNT 2.78 x10^6/uL (4.30-5.70); RED CELL DISTRIBUTION WIDTH 15.3 % (11.5-14.5); WHITE BLOOD COUNT 10.3 x10^3/uL (4.0-11.0)
[2016-09-01 01:27] LABS: HEMATOCRIT 26.8 % (39.0-53.0); HEMOGLOBIN 9.2 g/dL (13.0-17.5); RED BLOOD COUNT 2.79 x10^6/uL (4.30-5.70); RED CELL DISTRIBUTION WIDTH 15.1 % (11.5-14.5); WHITE BLOOD COUNT 9.8 x10^3/uL (4.0-11.0)
[2016-09-01 03:17] LABS: CALCIUM 8.2 mg/dL (8.5-10.1); CREATININE 0.8 mg/dL (0.7-1.3); GFR 92.1
[2016-09-01 03:35] VITALS: BP 118/52
[2016-09-01 06:31] LABS: HEMATOCRIT 26.8 % (39.0-53.0); HEMOGLOBIN 9.2 g/dL (13.0-17.5); RED BLOOD COUNT 2.8 x10^6/uL (4.30-5.70); RED CELL DISTRIBUTION WIDTH 15.4 % (11.5-14.5); WHITE BLOOD COUNT 8.7 x10^3/uL (4.0-11.0)
[2016-09-01 07:00] VITALS: BP 114/59
[2016-09-01] MEDS: PANTOPRAZOLE SODIUM IV 80 MG in IV NORMAL SALINE 100ML 100 ML IV SCH (09:25)
--- NOTE | 2016-09-01 09:46 | PDOC ---
PROGRESS NOTES Chief Complaint Chief Complaint 1. UGIB, bleeding angiectasia, first part of duodenum extending to diverticulum by EGD (08/31) s/p epi and bicap 2. Acute anemia of blood loss 3. Elevated TSH (mild at 4) 4. Non smoker, non drinker History of Present Illness History of Present Illness HUngry NO abd pain' VS ok, Hb 9.2 from 7 on admit NO further recurrence of bleeding that we could see At [facility] floor - echo just done PLAN: COnt gtts Await GI rounds if ok to start clears COnsider decreasing freq of HH BLeeding scan or possible rpt EGD if bleeding recurs - per GI note Await echo results Dw RN Noe Was on ASa 81 at home only Vitals Vitals Vital Signs Date Time Temp Pulse Resp B/P (MAP) Pulse Ox O2 Delivery O2 Flow Rate FiO2 09/01/16 08:00 Room Air 09/01/16 07:00 98.5 75 18 114/59 (77) 98 98.5 Physical Exam General: No acute distress Heart: Regular rate Abdomen: Normal bowel sounds Extremities: No clubbing, No cyanosis, No edema Skin: No rashes Labs LABS Laboratory Tests Test 08/31/16 09:46 08/31/16 10:00 08/31/16 17:55 09/01/16 00:50 Hemoglobin 7.0 g/dL (13.0-17.5) 9.2 g/dL (13.0-17.5) 9.2 g/dL (13.0-17.5) Hematocrit 20.4 % (39.0-53.0) 26.0 % (39.0-53.0) 26.8 % (39.0-53.0) Mean Corpuscular Hemoglobin Concent 34 g/dL (31-37) 35 g/dL (31-37) 34 g/dL (31-37) Urine Collection Type Unknown Urine Color Yellow Urine Clarity Clear Urine pH 8.0 Urine Specific [place] 1.020 Urine Protein Negative mg/dL (NEG-TRACE) Urine Glucose (UA) Negative mg/dL (NEG) Urine Ketones (Stick) Trace mg/dL (NEG) Urine Blood Negative (NEG) Urine Nitrite Negative (NEG) Urine Bilirubin Negative (NEG) Urine Urobilinogen Dipstick 0.2 mg/dL (0.2 mg/dL) Urine Leukocyte Esterase Negative (NEG) Urine RBC Occ /HPF (0-2) Urine WBC Occ /HPF (0-4) Urine Squamous Epithelial Cells Few /LPF Urine Bacteria Few /HPF (0-FEW) Urine Mucus Slight /LPF White Blood Count 10.3 x10^3/uL (4.0-11.0) 9.8 x10^3/uL (4.0-11.0) Red Blood Count 2.78 x10^6/uL (4.30-5.70) 2.79 x10^6/uL (4.30-5.70) Mean Corpuscular Volume 94 fL (79-100) 96 fL (79-100) Mean Corpuscular Hemoglobin 33 pg (25-35) 33 pg (25-35) Red Cell Distribution Width 15.3 % (11.5-14.5) 15.1 % (11.5-14.5) Platelet Count 115 x10^3/uL (140-400) 115 x10^3/uL (140-400) Sodium Level 144 mmol/L (136-145) Potassium Level 4.0 mmol/L (3.5-5.1) Chloride Level 112 mmol/L (98-107) Carbon Dioxide Level 26 mmol/L (21-32) Anion Gap 6 (6-14) Blood Urea Nitrogen 29 mg/dL (8-26) Creatinine 0.8 mg/dL (0.7-1.3) Estimated GFR (Cockcroft-Gault) 92.1 Glucose Level 98 mg/dL (70-99) Calcium Level 8.2 mg/dL (8.5-10.1) Test 09/01/16 05:55 White Blood Count 8.7 x10^3/uL (4.0-11.0) Red Blood Count 2.80 x10^6/uL (4.30-5.70) Hemoglobin 9.2 g/dL (13.0-17.5) Hematocrit 26.8 % (39.0-53.0) Mean Corpuscular Volume 96 fL (79-100) Mean Corpuscular Hemoglobin 33 pg (25-35) Mean Corpuscular Hemoglobin Concent 34 g/dL (31-37) Red Cell Distribution Width 15.4 % (11.5-14.5) Platelet Count 116 x10^3/uL (140-400) Review of Systems Review of Systems no CP, abd pain, diarrhea, soa Assessment and Plan Assessmemt and Plan Problems Medical Problems: (1) Syncope Status: Acute Problems: Comment Review of Relevant I have reviewed the following items yaritza (where applicable) has been applied. Labs Laboratory Tests Test 08/30/16 23:15 08/31/16 00:25 08/31/16 07:30 08/31/16 09:46 White Blood Count 9.3 x10^3/uL (4.0-11.0) Red Blood Count 2.37 x10^6/uL (4.30-5.70) Hemoglobin 8.1 g/dL (13.0-17.5) 7.0 g/dL (13.0-17.5) Hematocrit 23.5 % (39.0-53.0) 20.4 % (39.0-53.0) Mean Corpuscular Volume 99 fL (79-100) Mean Corpuscular Hemoglobin 34 pg (25-35) Mean Corpuscular Hemoglobin Concent 35 g/dL (31-37) 34 g/dL (31-37) Red Cell Distribution Width 13.4 % (11.5-14.5) Platelet Count 154 x10^3/uL (140-400) Neutrophils (%) (Auto) 67 % (31-73) Lymphocytes (%) (Auto) 22 % (24-48) Monocytes (%) (Auto) 7 % (0-9) Eosinophils (%) (Auto) 3 % (0-3) Basophils (%) (Auto) 1 % (0-3) Neutrophils # (Auto) 6.3 x10^3uL (1.8-7.7) Lymphocytes # (Auto) 2.1 x10^3/uL (1.0-4.8) Monocytes # (Auto) 0.6 x10^3/uL (0.0-1.1) Eosinophils # (Auto) 0.2 x10^3/uL (0.0-0.7) Basophils # (Auto) 0.1 x10^3/uL (0.0-0.2) Prothrombin Time 17.0 SEC (11.7-14.0) Prothromb Time International Ratio 1.5 (0.8-1.1) Sodium Level 144 mmol/L (136-145) Potassium Level 4.5 mmol/L (3.5-5.1) Chloride Level 109 mmol/L (98-107) Carbon Dioxide Level 26 mmol/L (21-32) Anion Gap 9 (6-14) Blood Urea Nitrogen 49 mg/dL (8-26) Creatinine 1.0 mg/dL (0.7-1.3) Estimated GFR (Cockcroft-Gault) 71.2 Glucose Level 194 mg/dL (70-99) Calcium Level 8.4 mg/dL (8.5-10.1) Magnesium Level 1.8 mg/dL (1.8-2.4) Total Bilirubin 0.6 mg/dL (0.2-1.0) Direct Bilirubin 0.1 mg/dL (0.0-0.2) Aspartate Amino Transf (AST/SGOT) 29 U/L (15-37) Alanine Aminotransferase (ALT/SGPT) 18 U/L (16-63) Alkaline Phosphatase 56 U/L (46-116) Creatine Kinase 110 U/L (39-308) Creatine Kinase MB (Mass) 1.1 ng/mL (0.0-3.6) Creatine Kinase MB Relative Index 1.0 % (0-4) Troponin I Quantitative 0.080 ng/mL (0.000-0.055) 0.036 ng/mL (0.000-0.055) NI-Zfm-[id number]-Type Natriuretic Peptide 140 pg/mL (0-449) Total Protein 4.5 g/dL (6.4-8.2) Albumin 2.4 g/dL (3.4-5.0) Thyroid Stimulating Hormone (TSH) 4.149 uIU/mL (0.358-3.74) Stool Occult Blood Positive (NEG) Test 08/31/16 10:00 08/31/16 17:55 09/01/16 00:50 09/01/16 05:55 Urine Collection Type Unknown Urine Color Yellow Urine Clarity Clear Urine pH 8.0 Urine Specific [place] 1.020 Urine Protein Negative mg/dL (NEG-TRACE) Urine Glucose (UA) Negative mg/dL (NEG) Urine Ketones (Stick) Trace mg/dL (NEG) Urine Blood Negative (NEG) Urine Nitrite Negative (NEG) Urine Bilirubin Negative (NEG) Urine Urobilinogen Dipstick 0.2 mg/dL (0.2 mg/dL) Urine Leukocyte Esterase Negative (NEG) Urine RBC Occ /HPF (0-2) Urine WBC Occ /HPF (0-4) Urine Squamous Epithelial Cells Few /LPF Urine Bacteria Few /HPF (0-FEW) Urine Mucus Slight /LPF White Blood Count 10.3 x10^3/uL (4.0-11.0) 9.8 x10^3/uL (4.0-11.0) 8.7 x10^3/uL (4.0-11.0) Red Blood Count 2.78 x10^6/uL (4.30-5.70) 2.79 x10^6/uL (4.30-5.70) 2.80 x10^6/uL (4.30-5.70) Hemoglobin 9.2 g/dL (13.0-17.5) 9.2 g/dL (13.0-17.5) 9.2 g/dL (13.0-17.5) Hematocrit 26.0 % (39.0-53.0) 26.8 % (39.0-53.0) 26.8 % (39.0-53.0) Mean Corpuscular Volume 94 fL (79-100) 96 fL (79-100) 96 fL (79-100) Mean Corpuscular Hemoglobin 33 pg (25-35) 33 pg (25-35) 33 pg (25-35) Mean Corpuscular Hemoglobin Concent 35 g/dL (31-37) 34 g/dL (31-37) 34 g/dL (31-37) Red Cell Distribution Width 15.3 % (11.5-14.5) 15.1 % (11.5-14.5) 15.4 % (11.5-14.5) Platelet Count 115 x10^3/uL (140-400) 115 x10^3/uL (140-400) 116 x10^3/uL (140-400) Sodium Level 144 mmol/L (136-145) Potassium Level 4.0 mmol/L (3.5-5.1) Chloride Level 112 mmol/L (98-107) Carbon Dioxide Level 26 mmol/L (21-32) Anion Gap 6 (6-14) Blood Urea Nitrogen 29 mg/dL (8-26) Creatinine 0.8 mg/dL (0.7-1.3) Estimated GFR (Cockcroft-Gault) 92.1 Glucose Level 98 mg/dL (70-99) Calcium Level 8.2 mg/dL (8.5-10.1) Laboratory Tests Test 08/31/16 09:46 08/31/16 10:00 08/31/16 17:55 09/01/16 00:50 Hemoglobin 7.0 g/dL (13.0-17.5) 9.2 g/dL (13.0-17.5) 9.2 g/dL (13.0-17.5) Hematocrit 20.4 % (39.0-53.0) 26.0 % (39.0-53.0) 26.8 % (39.0-53.0) Mean Corpuscular Hemoglobin Concent 34 g/dL (31-37) 35 g/dL (31-37) 34 g/dL (31-37) Urine Collection Type Unknown Urine Color Yellow Urine Clarity Clear Urine pH 8.0 Urine Specific [place] 1.020 Urine Protein Negative mg/dL (NEG-TRACE) Urine Glucose (UA) Negative mg/dL (NEG) Urine Ketones (Stick) Trace mg/dL (NEG) Urine Blood Negative (NEG) Urine Nitrite Negative (NEG) Urine Bilirubin Negative (NEG) Urine Urobilinogen Dipstick 0.2 mg/dL (0.2 mg/dL) Urine Leukocyte Esterase Negative (NEG) Urine RBC Occ /HPF (0-2) Urine WBC Occ /HPF (0-4) Urine Squamous Epithelial Cells Few /LPF Urine Bacteria Few /HPF (0-FEW) Urine Mucus Slight /LPF White Blood Count 10.3 x10^3/uL (4.0-11.0) 9.8 x10^3/uL (4.0-11.0) Red Blood Count 2.78 x10^6/uL (4.30-5.70) 2.79 x10^6/uL (4.30-5.70) Mean Corpuscular Volume 94 fL (79-100) 96 fL (79-100) Mean Corpuscular Hemoglobin 33 pg (25-35) 33 pg (25-35) Red Cell Distribution Width 15.3 % (11.5-14.5) 15.1 % (11.5-14.5) Platelet Count 115 x10^3/uL (140-400) 115 x10^3/uL (140-400) Sodium Level 144 mmol/L (136-145) Potassium Level 4.0 mmol/L (3.5-5.1) Chloride Level 112 mmol/L (98-107) Carbon Dioxide Level 26 mmol/L (21-32) Anion Gap 6 (6-14) Blood Urea Nitrogen 29 mg/dL (8-26) Creatinine 0.8 mg/dL (0.7-1.3) Estimated GFR (Cockcroft-Gault) 92.1 Glucose Level 98 mg/dL (70-99) Calcium Level 8.2 mg/dL (8.5-10.1) Test 09/01/16 05:55 White Blood Count 8.7 x10^3/uL (4.0-11.0) Red Blood Count 2.80 x10^6/uL (4.30-5.70) Hemoglobin 9.2 g/dL (13.0-17.5) Hematocrit 26.8 % (39.0-53.0) Mean Corpuscular Volume 96 fL (79-100) Mean Corpuscular Hemoglobin 33 pg (25-35) Mean Corpuscular Hemoglobin Concent 34 g/dL (31-37) Red Cell Distribution Width 15.4 % (11.5-14.5) Platelet Count 116 x10^3/uL (140-400) Medications Current Medications Sodium Chloride 1,000 ml @ 1,000 mls/hr 1X ONCE IV Last administered on 00:19; Start 08/31/16 at 00:30; Stop 08/31/16 at 01:29; Status DC Pantoprazole Sodium 80 mg/ Sodium Chloride 100 ml @ 10 mls/hr Q10H IV Last administered on 09/01/16 09:25; Start 08/31/16 at 00:45 Ondansetron HCl (Zofran) 4 mg PRN Q8HRS PRN IV NAUSEA/VOMITING; Start 08/31/16 at 01:30; Stop 09/01/16 at 01:29; Status DC Sodium Chloride (Normal Saline Flush) 3 ml QSHIFT PRN IV AFTER MEDS AND BLOOD DRAWS; Start 08/31/16 at 11:00 Ringer's Solution 1,000 ml @ 50 mls/hr Q20H IV ; Start 08/31/16 at 13:12; Stop 09/01/16 at 01:11; Status DC Propofol 20 ml @ As Directed STK-MED ONCE IV ; Start 08/31/16 at 13:38; Stop 08/31 at 13:39; Status DC Epinephrine HCl (Adrenalin) 1 mg STK-MED ONCE SQ Last administered on 08/31/16 13:52; Start 08/31/16 at 13:52; Stop 08/31/16 at 14:04; Status DC Epinephrine HCl (Adrenalin) 1 mg STK-MED ONCE SQ Last administered on 08/31/16 13:52; Start 08/31/16 at 13:52; Stop 08/31/16 at 14:04; Status DC Epinephrine HCl (EPINEPHrine SYRINGE) 1 mg STK-MED ONCE .ROUTE ; Start 08/31/16 at 14:11; Stop 08/31/16 at 14:12; Status DC Active Scripts Active Reported Aspir 81 (Aspirin) 81 Mg Tablet.dr 1 Tab PO DAILY Melatonin 3 Mg Tablet 1 Tab PO QHS Klonopin (Clonazepam) 0.5 Mg Tablet 1 Tab PO QHS Vitals/I & O Vital Sign - Last 24 Hours 08/31/16 08/31/16 08/31/16 08/31/16 10:10 10:45 11:00 11:00 Temp 98.9 98.9 98.4 98.4 98.9 98.9 98.4 98.4 Pulse 73 76 78 Resp 16 18 18 B/P (MAP) 107/52 108/58 (75) 108/58 Pulse Ox 100 O2 Delivery Room Air 08/31/16 08/31/16 08/31/16 08/31/16 11:15 11:30 12:00 12:30 Temp 98.4 98.6 98.6 98.4 98.4 98.6 98.6 98.4 Pulse 80 77 75 76 Resp 18 18 18 18 B/P (MAP) 114/57 109/57 97/53 116/58 08/31/16 08/31/16 08/31/16 08/31/16 13:09 13:11 13:24 13:30 Temp 98.6 98.6 99.6 98.6 98.6 99.6 Pulse 77 75 71 Resp 20 20 20 B/P (MAP) 107/57 122/59 Pulse Ox 100 O2 Delivery Room Air 08/31/16 08/31/16 08/31/16 08/31/16 13:43 14:02 14:18 14:20 Temp 98.2 99.7 98.1 98.2 99.7 98.1 Pulse 80 91 90 83 Resp 20 20 20 18 B/P (MAP) 106/53 120/59 121/58 120/59 Pulse Ox 100 100 O2 Delivery Room Air Room Air 08/31/16 08/31/16 08/31/16 08/31/16 14:30 14:31 14:45 15:00 Temp 98.1 98.9 98.1 98.9 Pulse 84 87 82 81 Resp 18 20 16 16 B/P (MAP) 120/59 118/56 110/55 110/55 (73) Pulse Ox 100 98 O2 Delivery Room Air Room Air 08/31/16 08/31/16 08/31/16 08/31/16 15:00 15:27 15:30 16:00 Temp 98.4 98.6 98.6 98.4 98.6 98.6 Pulse 80 80 74 Resp 16 16 18 B/P (MAP) 109/55 113/56 116/57 08/31/16 08/31/16 08/31/16 08/31/16 16:30 19:20 20:00 23:05 Temp 98.2 99.4 98.2 99.4 Pulse 74 75 79 Resp 18 18 18 B/P (MAP) 131/59 114/59 (77) 105/55 (72) Pulse Ox 99 97 O2 Delivery Room Air Room Air Room Air 09/01/16 09/01/16 09/01/16 03:35 07:00 08:00 Temp 98.7 98.5 98.7 98.5 Pulse 73 75 Resp 18 18 B/P (MAP) 118/52 (74) 114/59 (77) Pulse Ox 98 98 O2 Delivery Room Air Room Air Room Air Intake and Output 08/31/16 08/31/16 09/01/16 15:00 23:00 07:00 Intake Total 320 ml 0 ml Output Total 350 ml 700 ml Balance 320 ml -350 ml -700 ml CRISTINA RICE MD Sep 01, 2016 09:46
--- NOTE | 2016-09-01 10:29 | PDOC ---
G I PROGRESS NOTE Reason for Follow-up UGI bleed/duodenal avm Subjective No complaints. Has not had stool since yesterday. No pain, N or V. Objective EGD report reviewed. Physical Exam Lungs clear. RRR Abdomen soft, not tender nor distended. Review of Relevant I have reviewed the following items yaritza (where applicable) has been applied. Labs Laboratory Tests Test 08/30/16 23:15 08/31/16 00:25 08/31/16 07:30 08/31/16 09:46 White Blood Count 9.3 x10^3/uL (4.0-11.0) Red Blood Count 2.37 x10^6/uL (4.30-5.70) Hemoglobin 8.1 g/dL (13.0-17.5) 7.0 g/dL (13.0-17.5) Hematocrit 23.5 % (39.0-53.0) 20.4 % (39.0-53.0) Mean Corpuscular Volume 99 fL (79-100) Mean Corpuscular Hemoglobin 34 pg (25-35) Mean Corpuscular Hemoglobin Concent 35 g/dL (31-37) 34 g/dL (31-37) Red Cell Distribution Width 13.4 % (11.5-14.5) Platelet Count 154 x10^3/uL (140-400) Neutrophils (%) (Auto) 67 % (31-73) Lymphocytes (%) (Auto) 22 % (24-48) Monocytes (%) (Auto) 7 % (0-9) Eosinophils (%) (Auto) 3 % (0-3) Basophils (%) (Auto) 1 % (0-3) Neutrophils # (Auto) 6.3 x10^3uL (1.8-7.7) Lymphocytes # (Auto) 2.1 x10^3/uL (1.0-4.8) Monocytes # (Auto) 0.6 x10^3/uL (0.0-1.1) Eosinophils # (Auto) 0.2 x10^3/uL (0.0-0.7) Basophils # (Auto) 0.1 x10^3/uL (0.0-0.2) Prothrombin Time 17.0 SEC (11.7-14.0) Prothromb Time International Ratio 1.5 (0.8-1.1) Sodium Level 144 mmol/L (136-145) Potassium Level 4.5 mmol/L (3.5-5.1) Chloride Level 109 mmol/L (98-107) Carbon Dioxide Level 26 mmol/L (21-32) Anion Gap 9 (6-14) Blood Urea Nitrogen 49 mg/dL (8-26) Creatinine 1.0 mg/dL (0.7-1.3) Estimated GFR (Cockcroft-Gault) 71.2 Glucose Level 194 mg/dL (70-99) Calcium Level 8.4 mg/dL (8.5-10.1) Magnesium Level 1.8 mg/dL (1.8-2.4) Total Bilirubin 0.6 mg/dL (0.2-1.0) Direct Bilirubin 0.1 mg/dL (0.0-0.2) Aspartate Amino Transf (AST/SGOT) 29 U/L (15-37) Alanine Aminotransferase (ALT/SGPT) 18 U/L (16-63) Alkaline Phosphatase 56 U/L (46-116) Creatine Kinase 110 U/L (39-308) Creatine Kinase MB (Mass) 1.1 ng/mL (0.0-3.6) Creatine Kinase MB Relative Index 1.0 % (0-4) Troponin I Quantitative 0.080 ng/mL (0.000-0.055) 0.036 ng/mL (0.000-0.055) QX-Raj-G-Type Natriuretic Peptide 140 pg/mL (0-449) Total Protein 4.5 g/dL (6.4-8.2) Albumin 2.4 g/dL (3.4-5.0) Thyroid Stimulating Hormone (TSH) 4.149 uIU/mL (0.358-3.74) Stool Occult Blood Positive (NEG) Test 08/31/16 10:00 08/31/16 17:55 09/01/16 00:50 09/01/16 05:55 Urine Collection Type Unknown Urine Color Yellow Urine Clarity Clear Urine pH 8.0 Urine Specific [place] 1.020 Urine Protein Negative mg/dL (NEG-TRACE) Urine Glucose (UA) Negative mg/dL (NEG) Urine Ketones (Stick) Trace mg/dL (NEG) Urine Blood Negative (NEG) Urine Nitrite Negative (NEG) Urine Bilirubin Negative (NEG) Urine Urobilinogen Dipstick 0.2 mg/dL (0.2 mg/dL) Urine Leukocyte Esterase Negative (NEG) Urine RBC Occ /HPF (0-2) Urine WBC Occ /HPF (0-4) Urine Squamous Epithelial Cells Few /LPF Urine Bacteria Few /HPF (0-FEW) Urine Mucus Slight /LPF White Blood Count 10.3 x10^3/uL (4.0-11.0) 9.8 x10^3/uL (4.0-11.0) 8.7 x10^3/uL (4.0-11.0) Red Blood Count 2.78 x10^6/uL (4.30-5.70) 2.79 x10^6/uL (4.30-5.70) 2.80 x10^6/uL (4.30-5.70) Hemoglobin 9.2 g/dL (13.0-17.5) 9.2 g/dL (13.0-17.5) 9.2 g/dL (13.0-17.5) Hematocrit 26.0 % (39.0-53.0) 26.8 % (39.0-53.0) 26.8 % (39.0-53.0) Mean Corpuscular Volume 94 fL (79-100) 96 fL (79-100) 96 fL (79-100) Mean Corpuscular Hemoglobin 33 pg (25-35) 33 pg (25-35) 33 pg (25-35) Mean Corpuscular Hemoglobin Concent 35 g/dL (31-37) 34 g/dL (31-37) 34 g/dL (31-37) Red Cell Distribution Width 15.3 % (11.5-14.5) 15.1 % (11.5-14.5) 15.4 % (11.5-14.5) Platelet Count 115 x10^3/uL (140-400) 115 x10^3/uL (140-400) 116 x10^3/uL (140-400) Sodium Level 144 mmol/L (136-145) Potassium Level 4.0 mmol/L (3.5-5.1) Chloride Level 112 mmol/L (98-107) Carbon Dioxide Level 26 mmol/L (21-32) Anion Gap 6 (6-14) Blood Urea Nitrogen 29 mg/dL (8-26) Creatinine 0.8 mg/dL (0.7-1.3) Estimated GFR (Cockcroft-Gault) 92.1 Glucose Level 98 mg/dL (70-99) Calcium Level 8.2 mg/dL (8.5-10.1) Laboratory Tests Test 08/31/16 17:55 09/01/16 00:50 09/01/16 05:55 White Blood Count 10.3 x10^3/uL (4.0-11.0) 9.8 x10^3/uL (4.0-11.0) 8.7 x10^3/uL (4.0-11.0) Red Blood Count 2.78 x10^6/uL (4.30-5.70) 2.79 x10^6/uL (4.30-5.70) 2.80 x10^6/uL (4.30-5.70) Hemoglobin 9.2 g/dL (13.0-17.5) 9.2 g/dL (13.0-17.5) 9.2 g/dL (13.0-17.5) Hematocrit 26.0 % (39.0-53.0) 26.8 % (39.0-53.0) 26.8 % (39.0-53.0) Mean Corpuscular Volume 94 fL (79-100) 96 fL (79-100) 96 fL (79-100) Mean Corpuscular Hemoglobin 33 pg (25-35) 33 pg (25-35) 33 pg (25-35) Mean Corpuscular Hemoglobin Concent 35 g/dL (31-37) 34 g/dL (31-37) 34 g/dL (31-37) Red Cell Distribution Width 15.3 % (11.5-14.5) 15.1 % (11.5-14.5) 15.4 % (11.5-14.5) Platelet Count 115 x10^3/uL (140-400) 115 x10^3/uL (140-400) 116 x10^3/uL (140-400) Sodium Level 144 mmol/L (136-145) Potassium Level 4.0 mmol/L (3.5-5.1) Chloride Level 112 mmol/L (98-107) Carbon Dioxide Level 26 mmol/L (21-32) Anion Gap 6 (6-14) Blood Urea Nitrogen 29 mg/dL (8-26) Creatinine 0.8 mg/dL (0.7-1.3) Estimated GFR (Cockcroft-Gault) 92.1 Glucose Level 98 mg/dL (70-99) Calcium Level 8.2 mg/dL (8.5-10.1) Hemoglobin stable overnight. Medications Current Medications Sodium Chloride 1,000 ml @ 1,000 mls/hr 1X ONCE IV Last administered on 00:19; Start 08/31/16 at 00:30; Stop 08/31/16 at 01:29; Status DC Pantoprazole Sodium 80 mg/ Sodium Chloride 100 ml @ 10 mls/hr Q10H IV Last administered on 09/01/16 09:25; Start 08/31/16 at 00:45 Ondansetron HCl (Zofran) 4 mg PRN Q8HRS PRN IV NAUSEA/VOMITING; Start 08/31/16 at 01:30; Stop 09/01/16 at 01:29; Status DC Sodium Chloride (Normal Saline Flush) 3 ml QSHIFT PRN IV AFTER MEDS AND BLOOD DRAWS; Start 08/31/16 at 11:00 Ringer's Solution 1,000 ml @ 50 mls/hr Q20H IV ; Start 08/31/16 at 13:12; Stop 09/01/16 at 01:11; Status DC Propofol 20 ml @ As Directed STK-MED ONCE IV ; Start 08/31/16 at 13:38; Stop 08/31 at 13:39; Status DC Epinephrine HCl (Adrenalin) 1 mg STK-MED ONCE SQ Last administered on 08/31/16 13:52; Start 08/31/16 at 13:52; Stop 08/31/16 at 14:04; Status DC Epinephrine HCl (Adrenalin) 1 mg STK-MED ONCE SQ Last administered on 08/31/16 13:52; Start 08/31/16 at 13:52; Stop 08/31/16 at 14:04; Status DC Epinephrine HCl (EPINEPHrine SYRINGE) 1 mg STK-MED ONCE .ROUTE ; Start 08/31/16 at 14:11; Stop 08/31/16 at 14:12; Status DC Active Scripts Active Reported Aspir 81 (Aspirin) 81 Mg Tablet.dr 1 Tab PO DAILY Melatonin 3 Mg Tablet 1 Tab PO QHS Klonopin (Clonazepam) 0.5 Mg Tablet 1 Tab PO QHS Vitals/I & O Vital Sign - Last 24 Hours 08/31/16 08/31/16 08/31/16 08/31/16 10:45 11:00 11:00 11:15 Temp 98.9 98.4 98.4 98.4 98.9 98.4 98.4 98.4 Pulse 73 76 78 80 Resp 16 18 18 18 B/P (MAP) 107/52 108/58 (75) 108/58 114/57 Pulse Ox 100 O2 Delivery Room Air 08/31/16 08/31/16 08/31/16 08/31/16 11:30 12:00 12:30 13:09 Temp 98.6 98.6 98.4 98.6 98.6 98.6 98.4 98.6 Pulse 77 75 76 77 Resp 18 18 18 20 B/P (MAP) 109/57 97/53 116/58 Pulse Ox 100 08/31/16 08/31/16 08/31/16 08/31/16 13:11 13:24 13:30 13:43 Temp 98.6 99.6 98.2 98.6 99.6 98.2 Pulse 75 71 80 Resp 20 20 20 B/P (MAP) 107/57 122/59 106/53 O2 Delivery Room Air 08/31/16 08/31/16 08/31/16 08/31/16 14:02 14:18 14:20 14:30 Temp 99.7 98.1 99.7 98.1 Pulse 91 90 83 84 Resp 20 20 18 18 B/P (MAP) 120/59 121/58 120/59 120/59 Pulse Ox 100 100 O2 Delivery Room Air Room Air 08/31/16 08/31/16 08/31/16 08/31/16 14:31 14:45 15:00 15:00 Temp 98.1 98.9 98.4 98.1 98.9 98.4 Pulse 87 82 81 80 Resp 20 16 16 16 B/P (MAP) 118/56 110/55 110/55 (73) 109/55 Pulse Ox 100 98 O2 Delivery Room Air Room Air 08/31/16 08/31/16 08/31/16 08/31/16 15:27 15:30 16:00 16:30 Temp 98.6 98.6 98.6 98.6 Pulse 80 74 74 Resp 16 18 18 B/P (MAP) 113/56 116/57 131/59 08/31/16 08/31/16 08/31/16 09/01/16 19:20 20:00 23:05 03:35 Temp 98.2 99.4 98.7 98.2 99.4 98.7 Pulse 75 79 73 Resp 18 18 18 B/P (MAP) 114/59 (77) 105/55 (72) 118/52 (74) Pulse Ox 99 97 98 O2 Delivery Room Air Room Air Room Air Room Air 09/01/16 09/01/16 07:00 08:00 Temp 98.5 98.5 Pulse 75 Resp 18 B/P (MAP) 114/59 (77) Pulse Ox 98 O2 Delivery Room Air Room Air Intake and Output 08/31/16 08/31/16 09/01/16 14:59 22:59 06:59 Intake Total 320 ml 0 ml Output Total 350 ml 700 ml Balance 320 ml -350 ml -700 ml Problem List Problems Medical Problems: (1) Syncope Status: Acute Assessment Bleeding duodenal AVM, s/p cautery. Seems stable. Plan of Care: Continue current Tx, Mgmt Plan of Care Note Will allow some clears and change to PO PPI. Continue monitor for recurrent bleeding. PAUL FOX MD Sep 01, 2016 10:29
[2016-09-01 11:00] VITALS: BP 118/62
--- NOTE | 2016-09-01 11:17 | CARD ---
APPROVED REPORT EXAM: Two-dimensional and M-mode echocardiogram with Doppler and color Doppler. Other Information Quality : GoodHR: 67bpm Rhythm : NSR INDICATION Syncope 2D DIMENSIONS RVDd2.5 (2.9-3.5cm)Left Atrium(2D)2.7 (1.6-4.0cm) IVSd0.9 (0.7-1.1cm)Aortic Root(2D)3.7 (2.0-3.7cm) LVDd4.9 (3.9-5.9cm)LVOT Diameter2.4 (1.8-2.4cm) PWd0.9 (0.7-1.1cm)LVDs3.2 (2.5-4.0cm) FS (%) 35.1 %SV71.0 ml LVEF(%)64.2 (>50%) Aortic Valve AoV Peak Ricardo.181.3cm/sAoV VTI33.9cm AO Peak GR.13.1mmHgLVOT Peak Ricardo.142.0cm/s AO Mean GR.7mmHgAVA (VMAX)3.41cm2 Mitral Valve MV E Qaiczdly15.9cm/sMV E Peak Gr.3mmHg MV DECEL [id number] A [place]p63.9cm/s MV E Mean Gr.1mmHgE/A Ratio0.8 MV A [id number] Pulmonary Valve PV Peak Gtiiwhae224.5cm/s Pulmonary Vein S1 Cwyjtayk57.7cm/sD2 Gebnihwo93.7cm/s PVa [id number] LEFT VENTRICLE The left ventricle is normal size. There is normal left ventricular wall thickness. The left ventricu lar systolic function is normal and the ejection fraction is within normal range. The Ejection Fracti on is 60-65%. There is normal LV segmental wall motion. Transmitral Doppler flow pattern is Grade I-a bnormal relaxation pattern. RIGHT VENTRICLE The right ventricle is normal size. There is normal right ventricular wall thickness. The right ventr icular systolic function is normal. ATRIA The left atrium size is normal. The right atrium size is normal. The interatrial septum is intact wit h no evidence for an atrial septal defect or patent foramen ovale as noted on 2-D or Doppler imaging. AORTIC VALVE The aortic valve is mildly sclerotic. The aortic valve is trileaflet. Doppler and Color Flow revealed no significant aortic regurgitation. There is no significant aortic valvular stenosis. MITRAL VALVE Mitral annular calcification is mild. The mitral valve leaflets are thickened. There is no evidence o f mitral valve prolapse. There is no mitral valve stenosis. Doppler and Color Flow revealed trace desiree ral regurgitation. TRICUSPID VALVE Doppler and Color Flow revealed mild tricuspid regurgitation.The pulmonary artery systolic pressure i s estimated at 36 mmHg. PULMONIC VALVE Doppler and Color Flow revealed no pulmonic valvular regurgitation. There is no pulmonic valvular riley nosis. GREAT VESSELS The aortic root is normal in size. The ascending aorta is normal in size. The pulmonary artery is nor mal. The IVC is normal in size and collapses >50% with inspiration. PERICARDIAL EFFUSION There is no evidence of significant pericardial effusion. Critical Notification Critical Value: No <Conclusion> The left ventricular systolic function is normal and the ejection fraction is within normal range. Th e Ejection Fraction is 60-65%. There is normal LV segmental wall motion.
--- NOTE | 2016-09-01 11:49 | PDOC ---
CARDIO Progress Notes Date and Time Date of Service 09/01/16 Time of Evaluation 1145 Subjective Subjective: No Chest Pain, No shortness of breath, No Palpitations, No Dizziness, Other (no further bloody stools ) Comments: no acute events on telemetry Vitals Vitals Vital Signs Date Time Temp Pulse Resp B/P (MAP) Pulse Ox O2 Delivery O2 Flow Rate FiO2 09/01/16 11:00 97.9 77 16 118/62 (80) 98 Room Air 97.9 Weight Weight [ ] Input and Output Intake and Output Intake and Output 09/01/16 07:00 Intake Total 320 ml Output Total 1050 ml Balance -730 ml Intake Oral 0 ml Blood Product IV Normal Saline Flush 320 ml Output Urine Total 1050 ml Laboratory Labs Laboratory Tests Test 08/31/16 17:55 09/01/16 00:50 09/01/16 05:55 White Blood Count 10.3 x10^3/uL (4.0-11.0) 9.8 x10^3/uL (4.0-11.0) 8.7 x10^3/uL (4.0-11.0) Red Blood Count 2.78 x10^6/uL (4.30-5.70) 2.79 x10^6/uL (4.30-5.70) 2.80 x10^6/uL (4.30-5.70) Hemoglobin 9.2 g/dL (13.0-17.5) 9.2 g/dL (13.0-17.5) 9.2 g/dL (13.0-17.5) Hematocrit 26.0 % (39.0-53.0) 26.8 % (39.0-53.0) 26.8 % (39.0-53.0) Mean Corpuscular Volume 94 fL (79-100) 96 fL (79-100) 96 fL (79-100) Mean Corpuscular Hemoglobin 33 pg (25-35) 33 pg (25-35) 33 pg (25-35) Mean Corpuscular Hemoglobin Concent 35 g/dL (31-37) 34 g/dL (31-37) 34 g/dL (31-37) Red Cell Distribution Width 15.3 % (11.5-14.5) 15.1 % (11.5-14.5) 15.4 % (11.5-14.5) Platelet Count 115 x10^3/uL (140-400) 115 x10^3/uL (140-400) 116 x10^3/uL (140-400) Sodium Level 144 mmol/L (136-145) Potassium Level 4.0 mmol/L (3.5-5.1) Chloride Level 112 mmol/L (98-107) Carbon Dioxide Level 26 mmol/L (21-32) Anion Gap 6 (6-14) Blood Urea Nitrogen 29 mg/dL (8-26) Creatinine 0.8 mg/dL (0.7-1.3) Estimated GFR (Cockcroft-Gault) 92.1 Glucose Level 98 mg/dL (70-99) Calcium Level 8.2 mg/dL (8.5-10.1) Physical Exam HEENT: Neck Supple W Full Motion Chest: Symmetric LUNGS: Clear to Auscultation Heart: S1S2, RRR, no murmurs Abdomen: Soft N/T Extremities: No Edema, No Calf Tenderness Neurology: alert, oriented, follow commands Assessment Assessment 1. Syncope; no significant pauses or arrhythmias noted on telemetry. Like vasovagal episode 2. Mild troponin elevation; peak 0.08 in the setting of anemia. Echo with preserved LV function; no WMA present 3. Anemia; s/p transfusion 4. Duodenal AVM, s/p cautery Recommendations Continue supportive care No further cardiac workup warranted at this time. Please call with questions KULWINDER ELMORE APRN Sep 01, 2016 11:49
[2016-09-01 12:12] LABS: BASO # 0.1 x10^3/uL (0.0-0.2); BASO % 1 % (0-3); EOS % 3 % (0-3); HEMATOCRIT 26.9 % (39.0-53.0); HEMOGLOBIN 9.3 g/dL (13.0-17.5); LYMPH # 1.5 x10^3/uL (1.0-4.8); LYMPH % 17 % (24-48); MEAN CORPUSCULAR HEMOGLOBIN 33 pg (25-35); MEAN CORPUSCULAR HGB CONC 35 g/dL (31-37); MEAN CORPUSCULAR VOLUME 96 fL (79-100); MONO % 8 % (0-9); NEUT % 72 % (31-73); PLATELET COUNT 124 x10^3/uL (140-400); RED BLOOD COUNT 2.81 x10^6/uL (4.30-5.70); RED CELL DISTRIBUTION WIDTH 15.1 % (11.5-14.5); WHITE BLOOD COUNT 8.8 x10^3/uL (4.0-11.0)
[2016-09-01] MEDS: PANTOPRAZOLE 40 MG TABLET.DR. PO SCH (12:40)
[2016-09-01 15:00] VITALS: BP 121/59
[2016-09-01 17:52] LABS: HEMATOCRIT 29.6 % (39.0-53.0); HEMOGLOBIN 10.1 g/dL (13.0-17.5); RED BLOOD COUNT 3.07 x10^6/uL (4.30-5.70); RED CELL DISTRIBUTION WIDTH 15.1 % (11.5-14.5); WHITE BLOOD COUNT 9.3 x10^3/uL (4.0-11.0)
[2016-09-01 19:15] VITALS: BP 119/59
[2016-09-01 23:12] VITALS: BP 104/55
[2016-09-02 01:19] LABS: HEMATOCRIT 26.2 % (39.0-53.0); RED BLOOD COUNT 2.71 x10^6/uL (4.30-5.70); RED CELL DISTRIBUTION WIDTH 14.6 % (11.5-14.5); WHITE BLOOD COUNT 7.3 x10^3/uL (4.0-11.0)
[2016-09-02 03:23] VITALS: BP 119/56
[2016-09-02 06:16] LABS: HEMATOCRIT 27.3 % (39.0-53.0); HEMOGLOBIN 9.5 g/dL (13.0-17.5); RED BLOOD COUNT 2.83 x10^6/uL (4.30-5.70); RED CELL DISTRIBUTION WIDTH 15.1 % (11.5-14.5); WHITE BLOOD COUNT 7.5 x10^3/uL (4.0-11.0)
[2016-09-02] MEDS: PANTOPRAZOLE 40 MG TABLET.DR. PO SCH (06:18)
[2016-09-02 07:00] VITALS: BP 110/53
[2016-09-02 11:00] VITALS: BP 112/62
--- NOTE | 2016-09-02 11:20 | PDOC3 ---
Discharge Summary Visit Information Date of Admission: Sep 02, 2016 Date of Discharge: Sep 02, 2016 Admitting Diagnosis: GI bleed Admitting Diagnosis Comment: Final Diagnosis Problems Medical Problems: (1) Syncope Status: Acute Elderly male had a syncope and bloody stools. Admitted transfused. Consulted GI. Taken for EGD and a AVM was discovered and cauterized. Pt seen and examined this am Plan to advance diet and if next HgB is stable dc Total time 33 minutes Brief Hospital Course Allergies Allergies Coded Allergies Type Severity Reaction Last Updated Verified No Known Drug Allergies 08/31/16 No Vital Signs Vital Signs Date Time Temp Pulse Resp B/P (MAP) Pulse Ox O2 Delivery O2 Flow Rate FiO2 09/02/16 07:00 98.1 79 20 110/53 (72) 99 Room Air 98.1 Lab Results Laboratory Tests Test 08/31/16 17:55 09/01/16 00:50 09/01/16 05:55 09/01/16 11:45 White Blood Count 10.3 x10^3/uL (4.0-11.0) 9.8 x10^3/uL (4.0-11.0) 8.7 x10^3/uL (4.0-11.0) 8.8 x10^3/uL (4.0-11.0) Red Blood Count 2.78 x10^6/uL (4.30-5.70) 2.79 x10^6/uL (4.30-5.70) 2.80 x10^6/uL (4.30-5.70) 2.81 x10^6/uL (4.30-5.70) Hemoglobin 9.2 g/dL (13.0-17.5) 9.2 g/dL (13.0-17.5) 9.2 g/dL (13.0-17.5) 9.3 g/dL (13.0-17.5) Hematocrit 26.0 % (39.0-53.0) 26.8 % (39.0-53.0) 26.8 % (39.0-53.0) 26.9 % (39.0-53.0) Mean Corpuscular Volume 94 fL (79-100) 96 fL (79-100) 96 fL (79-100) 96 fL ( 79-100) Mean Corpuscular Hemoglobin 33 pg (25-35) 33 pg (25-35) 33 pg (25-35) 33 pg ( 25-35) Mean Corpuscular Hemoglobin Concent 35 g/dL (31-37) 34 g/dL (31-37) 34 g/dL (31-37) 35 g/dL (31-37) Red Cell Distribution Width 15.3 % (11.5-14.5) 15.1 % (11.5-14.5) 15.4 % (11.5-14.5) 15.1 % (11.5-14.5) Platelet Count 115 x10^3/uL (140-400) 115 x10^3/uL (140-400) 116 x10^3/uL (140-400) 124 x10^3/uL (140-400) Sodium Level 144 mmol/L (136-145) Potassium Level 4.0 mmol/L (3.5-5.1) Chloride Level 112 mmol/L (98-107) Carbon Dioxide Level 26 mmol/L (21-32) Anion Gap 6 (6-14) Blood Urea Nitrogen 29 mg/dL (8-26) Creatinine 0.8 mg/dL (0.7-1.3) Estimated GFR (Cockcroft-Gault) 92.1 Glucose Level 98 mg/dL (70-99) Calcium Level 8.2 mg/dL (8.5-10.1) Neutrophils (%) (Auto) 72 % (31-73) Lymphocytes (%) (Auto) 17 % (24-48) Monocytes (%) (Auto) 8 % (0-9) Eosinophils (%) (Auto) 3 % (0-3) Basophils (%) (Auto) 1 % (0-3) Neutrophils # (Auto) 6.3 x10^3uL (1.8-7.7) Lymphocytes # (Auto) 1.5 x10^3/uL (1.0-4.8) Monocytes # (Auto) 0.7 x10^3/uL (0.0-1.1) Eosinophils # (Auto) 0.2 x10^3/uL (0.0-0.7) Basophils # (Auto) 0.1 x10^3/uL (0.0-0.2) Test 09/01/16 17:48 09/02/16 00:50 09/02/16 05:58 White Blood Count 9.3 x10^3/uL (4.0-11.0) 7.3 x10^3/uL (4.0-11.0) 7.5 x10^3/uL (4.0-11.0) Red Blood Count 3.07 x10^6/uL (4.30-5.70) 2.71 x10^6/uL (4.30-5.70) 2.83 x10^6/uL (4.30-5.70) Hemoglobin 10.1 g/dL (13.0-17.5) 9.0 g/dL (13.0-17.5) 9.5 g/dL (13.0-17.5) Hematocrit 29.6 % (39.0-53.0) 26.2 % (39.0-53.0) 27.3 % (39.0-53.0) Mean Corpuscular Volume 96 fL (79-100) 97 fL (79-100) 96 fL (79-100) Mean Corpuscular Hemoglobin 33 pg (25-35) 33 pg (25-35) 33 pg (25-35) Mean Corpuscular Hemoglobin Concent 34 g/dL (31-37) 34 g/dL (31-37) 35 g/dL (31-37) Red Cell Distribution Width 15.1 % (11.5-14.5) 14.6 % (11.5-14.5) 15.1 % (11.5-14.5) Platelet Count 138 x10^3/uL (140-400) 124 x10^3/uL (140-400) 124 x10^3/uL (140-400) Laboratory Tests Test 09/01/16 11:45 09/01/16 17:48 09/02/16 00:50 09/02/16 05:58 White Blood Count 8.8 x10^3/uL (4.0-11.0) 9.3 x10^3/uL (4.0-11.0) 7.3 x10^3/uL (4.0-11.0) 7.5 x10^3/uL (4.0-11.0) Red Blood Count 2.81 x10^6/uL (4.30-5.70) 3.07 x10^6/uL (4.30-5.70) 2.71 x10^6/uL (4.30-5.70) 2.83 x10^6/uL (4.30-5.70) Hemoglobin 9.3 g/dL (13.0-17.5) 10.1 g/dL (13.0-17.5) 9.0 g/dL (13.0-17.5) 9.5 g/dL (13.0-17.5) Hematocrit 26.9 % (39.0-53.0) 29.6 % (39.0-53.0) 26.2 % (39.0-53.0) 27.3 % (39.0-53.0) Mean Corpuscular Volume 96 fL (79-100) 96 fL (79-100) 97 fL (79-100) 96 fL ( 79-100) Mean Corpuscular Hemoglobin 33 pg (25-35) 33 pg (25-35) 33 pg (25-35) 33 pg ( 25-35) Mean Corpuscular Hemoglobin Concent 35 g/dL (31-37) 34 g/dL (31-37) 34 g/dL (31-37) 35 g/dL (31-37) Red Cell Distribution Width 15.1 % (11.5-14.5) 15.1 % (11.5-14.5) 14.6 % (11.5-14.5) 15.1 % (11.5-14.5) Platelet Count 124 x10^3/uL (140-400) 138 x10^3/uL (140-400) 124 x10^3/uL (140-400) 124 x10^3/uL (140-400) Neutrophils (%) (Auto) 72 % (31-73) Lymphocytes (%) (Auto) 17 % (24-48) Monocytes (%) (Auto) 8 % (0-9) Eosinophils (%) (Auto) 3 % (0-3) Basophils (%) (Auto) 1 % (0-3) Neutrophils # (Auto) 6.3 x10^3uL (1.8-7.7) Lymphocytes # (Auto) 1.5 x10^3/uL (1.0-4.8) Monocytes # (Auto) 0.7 x10^3/uL (0.0-1.1) Eosinophils # (Auto) 0.2 x10^3/uL (0.0-0.7) Basophils # (Auto) 0.1 x10^3/uL (0.0-0.2) Brief Hospital Course Mr. Cervantes is a 86 old [sex] who presented with [ ] Discharge Information Scheduled Aspirin (Aspir 81), 1 TAB PO DAILY, (Reported) Clonazepam (Klonopin), 1 TAB PO QHS, (Reported) Melatonin (Melatonin), 1 TAB PO QHS, (Reported) LSIBET PAN III, DO Sep 02, 2016 11:20
--- NOTE | 2016-09-02 11:46 | PDOC ---
PROGRESS NOTES Chief Complaint Chief Complaint 1. Syncope: likely vasovagal 2. Anemia 2/2 blood loss: s/p transfusion 3. Elevated TSH 4. Mild troponin elevation: 0.08, likely 2/2 anemia 5. Duodenal AVM: s/p cautery History of Present Illness History of Present Illness pt is resting comfortably with son at his side, he denies any complaints, he has had two bowel movements postop and noticed red streaks of blood in both, he is eager to work with PT/OT Vitals Vitals Vital Signs Date Time Temp Pulse Resp B/P (MAP) Pulse Ox O2 Delivery O2 Flow Rate FiO2 09/02/16 11:00 98.0 79 20 112/62 (79) 100 98.0 09/02/16 07:00 Room Air Physical Exam General: Alert, Oriented X3, Cooperative, No acute distress Heart: Regular rate, No murmurs Lungs: Clear, Other (no crackles or wheezes) Abdomen: Normal bowel sounds, Soft, No tenderness Extremities: No clubbing, No cyanosis, No edema Skin: No rashes Labs LABS Laboratory Tests Test 09/01/16 11:45 09/01/16 17:48 09/02/16 00:50 09/02/16 05:58 White Blood Count 8.8 x10^3/uL (4.0-11.0) 9.3 x10^3/uL (4.0-11.0) 7.3 x10^3/uL (4.0-11.0) 7.5 x10^3/uL (4.0-11.0) Red Blood Count 2.81 x10^6/uL (4.30-5.70) 3.07 x10^6/uL (4.30-5.70) 2.71 x10^6/uL (4.30-5.70) 2.83 x10^6/uL (4.30-5.70) Hemoglobin 9.3 g/dL (13.0-17.5) 10.1 g/dL (13.0-17.5) 9.0 g/dL (13.0-17.5) 9.5 g/dL (13.0-17.5) Hematocrit 26.9 % (39.0-53.0) 29.6 % (39.0-53.0) 26.2 % (39.0-53.0) 27.3 % (39.0-53.0) Mean Corpuscular Volume 96 fL (79-100) 96 fL (79-100) 97 fL (79-100) 96 fL ( 79-100) Mean Corpuscular Hemoglobin 33 pg (25-35) 33 pg (25-35) 33 pg (25-35) 33 pg ( 25-35) Mean Corpuscular Hemoglobin Concent 35 g/dL (31-37) 34 g/dL (31-37) 34 g/dL (31-37) 35 g/dL (31-37) Red Cell Distribution Width 15.1 % (11.5-14.5) 15.1 % (11.5-14.5) 14.6 % (11.5-14.5) 15.1 % (11.5-14.5) Platelet Count 124 x10^3/uL (140-400) 138 x10^3/uL (140-400) 124 x10^3/uL (140-400) 124 x10^3/uL (140-400) Neutrophils (%) (Auto) 72 % (31-73) Lymphocytes (%) (Auto) 17 % (24-48) Monocytes (%) (Auto) 8 % (0-9) Eosinophils (%) (Auto) 3 % (0-3) Basophils (%) (Auto) 1 % (0-3) Neutrophils # (Auto) 6.3 x10^3uL (1.8-7.7) Lymphocytes # (Auto) 1.5 x10^3/uL (1.0-4.8) Monocytes # (Auto) 0.7 x10^3/uL (0.0-1.1) Eosinophils # (Auto) 0.2 x10^3/uL (0.0-0.7) Basophils # (Auto) 0.1 x10^3/uL (0.0-0.2) Review of Systems Review of Systems denies nausea, vomiting, diarrhea, or headache red streaks of blood in stool Assessment and Plan Assessmemt and Plan Assessment 1. Syncope: likely vasovagal 2. Anemia 2/2 blood loss: s/p transfusion 3. Elevated TSH 4. Mild troponin elevation: 0.08, likely 2/2 anemia 5. Duodenal AVM: s/p cautery Plan 1. Advance diet as tolerated, currently clears with PO meds 2. Continue PPI 3. Reviewed imaging, EGD showed duodenal AVM, Echo showed EF of 60-65%, CXR showed no acute processes 4. Rechecks BMP and CBC tomorrow, monitor Hgb 5. PT/OT 6. Discussed plan of care with son and nursing 7. Appreciate subspecialty input 8. Discharge pending approval from subspecialties Problems: Comment Review of Relevant I have reviewed the following items yaritza (where applicable) has been applied. Labs Laboratory Tests Test 08/31/16 17:55 09/01/16 00:50 09/01/16 05:55 09/01/16 11:45 White Blood Count 10.3 x10^3/uL (4.0-11.0) 9.8 x10^3/uL (4.0-11.0) 8.7 x10^3/uL (4.0-11.0) 8.8 x10^3/uL (4.0-11.0) Red Blood Count 2.78 x10^6/uL (4.30-5.70) 2.79 x10^6/uL (4.30-5.70) 2.80 x10^6/uL (4.30-5.70) 2.81 x10^6/uL (4.30-5.70) Hemoglobin 9.2 g/dL (13.0-17.5) 9.2 g/dL (13.0-17.5) 9.2 g/dL (13.0-17.5) 9.3 g/dL (13.0-17.5) Hematocrit 26.0 % (39.0-53.0) 26.8 % (39.0-53.0) 26.8 % (39.0-53.0) 26.9 % (39.0-53.0) Mean Corpuscular Volume 94 fL (79-100) 96 fL (79-100) 96 fL (79-100) 96 fL ( 79-100) Mean Corpuscular Hemoglobin 33 pg (25-35) 33 pg (25-35) 33 pg (25-35) 33 pg ( 25-35) Mean Corpuscular Hemoglobin Concent 35 g/dL (31-37) 34 g/dL (31-37) 34 g/dL (31-37) 35 g/dL (31-37) Red Cell Distribution Width 15.3 % (11.5-14.5) 15.1 % (11.5-14.5) 15.4 % (11.5-14.5) 15.1 % (11.5-14.5) Platelet Count 115 x10^3/uL (140-400) 115 x10^3/uL (140-400) 116 x10^3/uL (140-400) 124 x10^3/uL (140-400) Sodium Level 144 mmol/L (136-145) Potassium Level 4.0 mmol/L (3.5-5.1) Chloride Level 112 mmol/L (98-107) Carbon Dioxide Level 26 mmol/L (21-32) Anion Gap 6 (6-14) Blood Urea Nitrogen 29 mg/dL (8-26) Creatinine 0.8 mg/dL (0.7-1.3) Estimated GFR (Cockcroft-Gault) 92.1 Glucose Level 98 mg/dL (70-99) Calcium Level 8.2 mg/dL (8.5-10.1) Neutrophils (%) (Auto) 72 % (31-73) Lymphocytes (%) (Auto) 17 % (24-48) Monocytes (%) (Auto) 8 % (0-9) Eosinophils (%) (Auto) 3 % (0-3) Basophils (%) (Auto) 1 % (0-3) Neutrophils # (Auto) 6.3 x10^3uL (1.8-7.7) Lymphocytes # (Auto) 1.5 x10^3/uL (1.0-4.8) Monocytes # (Auto) 0.7 x10^3/uL (0.0-1.1) Eosinophils # (Auto) 0.2 x10^3/uL (0.0-0.7) Basophils # (Auto) 0.1 x10^3/uL (0.0-0.2) Test 09/01/16 17:48 09/02/16 00:50 09/02/16 05:58 White Blood Count 9.3 x10^3/uL (4.0-11.0) 7.3 x10^3/uL (4.0-11.0) 7.5 x10^3/uL (4.0-11.0) Red Blood Count 3.07 x10^6/uL (4.30-5.70) 2.71 x10^6/uL (4.30-5.70) 2.83 x10^6/uL (4.30-5.70) Hemoglobin 10.1 g/dL (13.0-17.5) 9.0 g/dL (13.0-17.5) 9.5 g/dL (13.0-17.5) Hematocrit 29.6 % (39.0-53.0) 26.2 % (39.0-53.0) 27.3 % (39.0-53.0) Mean Corpuscular Volume 96 fL (79-100) 97 fL (79-100) 96 fL (79-100) Mean Corpuscular Hemoglobin 33 pg (25-35) 33 pg (25-35) 33 pg (25-35) Mean Corpuscular Hemoglobin Concent 34 g/dL (31-37) 34 g/dL (31-37) 35 g/dL (31-37) Red Cell Distribution Width 15.1 % (11.5-14.5) 14.6 % (11.5-14.5) 15.1 % (11.5-14.5) Platelet Count 138 x10^3/uL (140-400) 124 x10^3/uL (140-400) 124 x10^3/uL (140-400) Laboratory Tests Test 09/01/16 11:45 09/01/16 17:48 09/02/16 00:50 09/02/16 05:58 White Blood Count 8.8 x10^3/uL (4.0-11.0) 9.3 x10^3/uL (4.0-11.0) 7.3 x10^3/uL (4.0-11.0) 7.5 x10^3/uL (4.0-11.0) Red Blood Count 2.81 x10^6/uL (4.30-5.70) 3.07 x10^6/uL (4.30-5.70) 2.71 x10^6/uL (4.30-5.70) 2.83 x10^6/uL (4.30-5.70) Hemoglobin 9.3 g/dL (13.0-17.5) 10.1 g/dL (13.0-17.5) 9.0 g/dL (13.0-17.5) 9.5 g/dL (13.0-17.5) Hematocrit 26.9 % (39.0-53.0) 29.6 % (39.0-53.0) 26.2 % (39.0-53.0) 27.3 % (39.0-53.0) Mean Corpuscular Volume 96 fL (79-100) 96 fL (79-100) 97 fL (79-100) 96 fL ( 79-100) Mean Corpuscular Hemoglobin 33 pg (25-35) 33 pg (25-35) 33 pg (25-35) 33 pg ( 25-35) Mean Corpuscular Hemoglobin Concent 35 g/dL (31-37) 34 g/dL (31-37) 34 g/dL (31-37) 35 g/dL (31-37) Red Cell Distribution Width 15.1 % (11.5-14.5) 15.1 % (11.5-14.5) 14.6 % (11.5-14.5) 15.1 % (11.5-14.5) Platelet Count 124 x10^3/uL (140-400) 138 x10^3/uL (140-400) 124 x10^3/uL (140-400) 124 x10^3/uL (140-400) Neutrophils (%) (Auto) 72 % (31-73) Lymphocytes (%) (Auto) 17 % (24-48) Monocytes (%) (Auto) 8 % (0-9) Eosinophils (%) (Auto) 3 % (0-3) Basophils (%) (Auto) 1 % (0-3) Neutrophils # (Auto) 6.3 x10^3uL (1.8-7.7) Lymphocytes # (Auto) 1.5 x10^3/uL (1.0-4.8) Monocytes # (Auto) 0.7 x10^3/uL (0.0-1.1) Eosinophils # (Auto) 0.2 x10^3/uL (0.0-0.7) Basophils # (Auto) 0.1 x10^3/uL (0.0-0.2) Medications Current Medications Sodium Chloride 1,000 ml @ 1,000 mls/hr 1X ONCE IV Last administered on 00:19; Start 08/31/16 at 00:30; Stop 08/31/16 at 01:29; Status DC Pantoprazole Sodium 80 mg/ Sodium Chloride 100 ml @ 10 mls/hr Q10H IV Last administered on 09/01/16 09:25; Start 08/31/16 at 00:45; Stop 09/01/16 at 10:31; Status DC Ondansetron HCl (Zofran) 4 mg PRN Q8HRS PRN IV NAUSEA/VOMITING; Start 08/31/16 at 01:30; Stop 09/01/16 at 01:29; Status DC Sodium Chloride (Normal Saline Flush) 3 ml QSHIFT PRN IV AFTER MEDS AND BLOOD DRAWS; Start 08/31/16 at 11:00 Ringer's Solution 1,000 ml @ 50 mls/hr Q20H IV ; Start 08/31/16 at 13:12; Stop 09/01/16 at 01:11; Status DC Propofol 20 ml @ As Directed STK-MED ONCE IV ; Start 08/31/16 at 13:38; Stop 08/31 at 13:39; Status DC Epinephrine HCl (Adrenalin) 1 mg STK-MED ONCE SQ Last administered on 08/31/16 13:52; Start 08/31/16 at 13:52; Stop 08/31/16 at 14:04; Status DC Epinephrine HCl (Adrenalin) 1 mg STK-MED ONCE SQ Last administered on 08/31/16 13:52; Start 08/31/16 at 13:52; Stop 08/31/16 at 14:04; Status DC Epinephrine HCl (EPINEPHrine SYRINGE) 1 mg STK-MED ONCE .ROUTE ; Start 08/31/16 at 14:11; Stop 08/31/16 at 14:12; Status DC Pantoprazole Sodium (Protonix) 40 mg DAILYAC PO Last administered on 7/4/17at 06:18; Start 09/01/16 at 11:30 Active Scripts Active Reported Aspir 81 (Aspirin) 81 Mg Tablet.dr 1 Tab PO DAILY Melatonin 3 Mg Tablet 1 Tab PO QHS Klonopin (Clonazepam) 0.5 Mg Tablet 1 Tab PO QHS Vitals/I & O Vital Sign - Last 24 Hours 09/01/16 09/01/16 09/01/16 09/01/16 15:00 19:15 19:35 23:12 Temp 97.9 97.9 98.4 97.9 97.9 98.4 Pulse 84 79 75 Resp 16 18 16 B/P (MAP) 121/59 (79) 119/59 (79) 104/55 (71) Pulse Ox 95 98 99 O2 Delivery Room Air Room Air Room Air 09/02/16 09/02/16 09/02/16 03:23 07:00 11:00 Temp 98.2 98.1 98.0 98.2 98.1 98.0 Pulse 73 79 79 Resp 16 20 20 B/P (MAP) 119/56 (77) 110/53 (72) 112/62 (79) Pulse Ox 97 99 100 O2 Delivery Room Air Room Air Intake and Output 09/01/16 09/01/16 09/02/16 15:00 23:00 07:00 Intake Total 800 ml 480 ml Output Total 1200 ml Balance -400 ml 480 ml LISBET PAN III DO Sep 02, 2016 11:46
--- NOTE | 2016-09-02 12:38 | PDOC ---
G I PROGRESS NOTE Reason for Follow-up ACUTE BLOOD LOSS ANEMIA/MELENA Subjective Feeling better Physical Exam Lungs clear CV S1 S2 ABD +BS, soft, nontender Review of Relevant I have reviewed the following items yaritza (where applicable) has been applied. Labs Laboratory Tests Test 08/31/16 17:55 09/01/16 00:50 09/01/16 05:55 09/01/16 11:45 White Blood Count 10.3 x10^3/uL (4.0-11.0) 9.8 x10^3/uL (4.0-11.0) 8.7 x10^3/uL (4.0-11.0) 8.8 x10^3/uL (4.0-11.0) Red Blood Count 2.78 x10^6/uL (4.30-5.70) 2.79 x10^6/uL (4.30-5.70) 2.80 x10^6/uL (4.30-5.70) 2.81 x10^6/uL (4.30-5.70) Hemoglobin 9.2 g/dL (13.0-17.5) 9.2 g/dL (13.0-17.5) 9.2 g/dL (13.0-17.5) 9.3 g/dL (13.0-17.5) Hematocrit 26.0 % (39.0-53.0) 26.8 % (39.0-53.0) 26.8 % (39.0-53.0) 26.9 % (39.0-53.0) Mean Corpuscular Volume 94 fL (79-100) 96 fL (79-100) 96 fL (79-100) 96 fL ( 79-100) Mean Corpuscular Hemoglobin 33 pg (25-35) 33 pg (25-35) 33 pg (25-35) 33 pg ( 25-35) Mean Corpuscular Hemoglobin Concent 35 g/dL (31-37) 34 g/dL (31-37) 34 g/dL (31-37) 35 g/dL (31-37) Red Cell Distribution Width 15.3 % (11.5-14.5) 15.1 % (11.5-14.5) 15.4 % (11.5-14.5) 15.1 % (11.5-14.5) Platelet Count 115 x10^3/uL (140-400) 115 x10^3/uL (140-400) 116 x10^3/uL (140-400) 124 x10^3/uL (140-400) Sodium Level 144 mmol/L (136-145) Potassium Level 4.0 mmol/L (3.5-5.1) Chloride Level 112 mmol/L (98-107) Carbon Dioxide Level 26 mmol/L (21-32) Anion Gap 6 (6-14) Blood Urea Nitrogen 29 mg/dL (8-26) Creatinine 0.8 mg/dL (0.7-1.3) Estimated GFR (Cockcroft-Gault) 92.1 Glucose Level 98 mg/dL (70-99) Calcium Level 8.2 mg/dL (8.5-10.1) Neutrophils (%) (Auto) 72 % (31-73) Lymphocytes (%) (Auto) 17 % (24-48) Monocytes (%) (Auto) 8 % (0-9) Eosinophils (%) (Auto) 3 % (0-3) Basophils (%) (Auto) 1 % (0-3) Neutrophils # (Auto) 6.3 x10^3uL (1.8-7.7) Lymphocytes # (Auto) 1.5 x10^3/uL (1.0-4.8) Monocytes # (Auto) 0.7 x10^3/uL (0.0-1.1) Eosinophils # (Auto) 0.2 x10^3/uL (0.0-0.7) Basophils # (Auto) 0.1 x10^3/uL (0.0-0.2) Test 09/01/16 17:48 09/02/16 00:50 09/02/16 05:58 White Blood Count 9.3 x10^3/uL (4.0-11.0) 7.3 x10^3/uL (4.0-11.0) 7.5 x10^3/uL (4.0-11.0) Red Blood Count 3.07 x10^6/uL (4.30-5.70) 2.71 x10^6/uL (4.30-5.70) 2.83 x10^6/uL (4.30-5.70) Hemoglobin 10.1 g/dL (13.0-17.5) 9.0 g/dL (13.0-17.5) 9.5 g/dL (13.0-17.5) Hematocrit 29.6 % (39.0-53.0) 26.2 % (39.0-53.0) 27.3 % (39.0-53.0) Mean Corpuscular Volume 96 fL (79-100) 97 fL (79-100) 96 fL (79-100) Mean Corpuscular Hemoglobin 33 pg (25-35) 33 pg (25-35) 33 pg (25-35) Mean Corpuscular Hemoglobin Concent 34 g/dL (31-37) 34 g/dL (31-37) 35 g/dL (31-37) Red Cell Distribution Width 15.1 % (11.5-14.5) 14.6 % (11.5-14.5) 15.1 % (11.5-14.5) Platelet Count 138 x10^3/uL (140-400) 124 x10^3/uL (140-400) 124 x10^3/uL (140-400) Laboratory Tests Test 09/01/16 17:48 09/02/16 00:50 09/02/16 05:58 White Blood Count 9.3 x10^3/uL (4.0-11.0) 7.3 x10^3/uL (4.0-11.0) 7.5 x10^3/uL (4.0-11.0) Red Blood Count 3.07 x10^6/uL (4.30-5.70) 2.71 x10^6/uL (4.30-5.70) 2.83 x10^6/uL (4.30-5.70) Hemoglobin 10.1 g/dL (13.0-17.5) 9.0 g/dL (13.0-17.5) 9.5 g/dL (13.0-17.5) Hematocrit 29.6 % (39.0-53.0) 26.2 % (39.0-53.0) 27.3 % (39.0-53.0) Mean Corpuscular Volume 96 fL (79-100) 97 fL (79-100) 96 fL (79-100) Mean Corpuscular Hemoglobin 33 pg (25-35) 33 pg (25-35) 33 pg (25-35) Mean Corpuscular Hemoglobin Concent 34 g/dL (31-37) 34 g/dL (31-37) 35 g/dL (31-37) Red Cell Distribution Width 15.1 % (11.5-14.5) 14.6 % (11.5-14.5) 15.1 % (11.5-14.5) Platelet Count 138 x10^3/uL (140-400) 124 x10^3/uL (140-400) 124 x10^3/uL (140-400) Medications Current Medications Sodium Chloride 1,000 ml @ 1,000 mls/hr 1X ONCE IV Last administered on 00:19; Start 08/31/16 at 00:30; Stop 08/31/16 at 01:29; Status DC Pantoprazole Sodium 80 mg/ Sodium Chloride 100 ml @ 10 mls/hr Q10H IV Last administered on 09/01/16 09:25; Start 08/31/16 at 00:45; Stop 09/01/16 at 10:31; Status DC Ondansetron HCl (Zofran) 4 mg PRN Q8HRS PRN IV NAUSEA/VOMITING; Start 08/31/16 at 01:30; Stop 09/01/16 at 01:29; Status DC Sodium Chloride (Normal Saline Flush) 3 ml QSHIFT PRN IV AFTER MEDS AND BLOOD DRAWS; Start 08/31/16 at 11:00 Ringer's Solution 1,000 ml @ 50 mls/hr Q20H IV ; Start 08/31/16 at 13:12; Stop 09/01/16 at 01:11; Status DC Propofol 20 ml @ As Directed STK-MED ONCE IV ; Start 08/31/16 at 13:38; Stop 08/31 at 13:39; Status DC Epinephrine HCl (Adrenalin) 1 mg STK-MED ONCE SQ Last administered on 08/31/16 13:52; Start 08/31/16 at 13:52; Stop 08/31/16 at 14:04; Status DC Epinephrine HCl (Adrenalin) 1 mg STK-MED ONCE SQ Last administered on 08/31/16 13:52; Start 08/31/16 at 13:52; Stop 08/31/16 at 14:04; Status DC Epinephrine HCl (EPINEPHrine SYRINGE) 1 mg STK-MED ONCE .ROUTE ; Start 08/31/16 at 14:11; Stop 08/31/16 at 14:12; Status DC Pantoprazole Sodium (Protonix) 40 mg DAILYAC PO Last administered on 09/02/16 06:18; Start 09/01/16 at 11:30 Active Scripts Active Reported Aspir 81 (Aspirin) 81 Mg Tablet.dr 1 Tab PO DAILY Melatonin 3 Mg Tablet 1 Tab PO QHS Klonopin (Clonazepam) 0.5 Mg Tablet 1 Tab PO QHS Vitals/I & O Vital Sign - Last 24 Hours 09/01/16 09/01/16 09/01/16 09/01/16 15:00 19:15 19:35 23:12 Temp 97.9 97.9 98.4 97.9 97.9 98.4 Pulse 84 79 75 Resp 16 18 16 B/P (MAP) 121/59 (79) 119/59 (79) 104/55 (71) Pulse Ox 95 98 99 O2 Delivery Room Air Room Air Room Air 09/02/16 09/02/16 09/02/16 09/02/16 03:23 07:00 08:00 11:00 Temp 98.2 98.1 98.0 98.2 98.1 98.0 Pulse 73 79 79 Resp 16 20 20 B/P (MAP) 119/56 (77) 110/53 (72) 112/62 (79) Pulse Ox 97 99 100 O2 Delivery Room Air Room Air Room Air Intake and Output 09/01/16 09/01/16 09/02/16 15:00 23:00 07:00 Intake Total 800 ml 480 ml Output Total 1200 ml Balance -400 ml 480 ml Problem List Problems Medical Problems: (1) Syncope Status: Acute Assessment 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
== END 2016-09-02 15:50 | disposition home or self-care (01) | DRG 377 ==
LOC: ER 23:03 → 2 SOUTH 08-31 00:15 → OBSVTOIN 08-31 00:19
PROVIDERS: ADMIT Internal Medicine Hematology & Oncology; ATTEND Internal Medicine Hematology & Oncology
PROC: 30233N1 Transfusion of Nonautologous Red Blood Cells into Peripheral Vein, Percutaneous Approach (ICD-10-PCS; 2016-08-31)
PROC: 3E0G8GC Introduction of Other Therapeutic Substance into Upper GI, Via Natural or Artificial Opening Endoscopic (ICD-10-PCS; 2016-08-31)
PROC: 0W3P8ZZ Control Bleeding in Gastrointestinal Tract, Via Natural or Artificial Opening Endoscopic (ICD-10-PCS; principal; 2016-08-31 13:00)
DX: K31.811 Angiodysplasia of stomach and duodenum with bleeding (principal); E43 Unspecified severe protein-calorie malnutrition; D62 Acute posthemorrhagic anemia; L03.90 Cellulitis, unspecified; Z68.1 Body mass index [BMI] 19.9 or less, adult; I99.8 Other disorder of circulatory system; M19.90 Unspecified osteoarthritis, unspecified site; R55 Syncope and collapse; G47.00 Insomnia, unspecified; I49.3 Ventricular premature depolarization; Z79.82 Long term (current) use of aspirin; Z82.49 Family history of ischemic heart disease and other diseases of the circulatory system; Z82.5 Family history of asthma and other chronic lower respiratory diseases
CPT/HCPCS: 36415; 36430; 71010; 80048; 80076; 81001; 82274; 82553; 83735; 83880; 84443; 84484; 85014; 85018; 85027; 85610; 86850; 86900; 86901; 86920; 93005; 93306; 96360; A6539; C9113; G0379; J0171; J2704; J7030; P9016; 99291-25